=== PATIENT | male | born 1945 | race Caucasian/White ===

== ENCOUNTER 2023-09-19 11:10 | Emergency (ER) | payer MEDICARE, SELFPAY ==
--- NOTE | ~2023-09-19 | XR_ITS ---
EXAMINATION: XR lumbar spine 2-3V, XR pelvis 1-2V DATE: 09/19/2023 12:00 INDICATION: Left lower back pain TECHNIQUE: 1. Anteroposterior and lateral views of the lumbar spine, and cone-down lateral view of the lumbosacr al junction were obtained. 2. AP view of the pelvis was obtained. COMPARISON: None. FINDINGS: Transitional likely syndesmotic L5 segment with 4 more cephalad nonrib-bearing lumbar segments. 2 mm retrolisthesis L2 on L3 and 2 mm anterolisthesis L3 on L4. 3 mild likely physiologic anterior wedging at T12. Lumbar vertebral body heights are normal. Moderate disc height loss at L4-L5 and L5-S1. Mild disc height loss at remaining visualized levels from T10-T 11 through L3-L4. There are bridging osteophytes at multiple levels consistent with diffuse idiopathi c skeletal hyperostosis (DISH). There is multilevel at least moderate severity lower lumbar predomin ant with facet osteoarthritis. Moderate bilateral sacroiliac osteoarthritis. Mild bilateral hip osteo arthritis. IMPRESSION: 1. Mild lower thoracic and mild to moderate lower lumbar predominant spondylosis with bridging osteop hytes at multiple levels consistent with diffuse idiopathic skeletal hyperostosis (DISH). 2. 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 Reviewed, dictated and finalized at location B. IMPRESSION: 1. Mild lower thoracic and mild to moderate lower lumbar predominant spondylosi s with bridging osteophytes at multiple levels consistent with diffuse idiopath ic skeletal hyperostosis (DISH). 2. 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
[2023-09-19 11:25] VITALS: BP 142/84; PULSE 91; RESP 16; TEMP 36.5; O2SAT 96
--- NOTE | 2023-09-19 11:28 | ED.BACK ---
HPI - Back Pain/Injury General Chief Complaint: Back Pain/Injury Stated Complaint: Abdominal Pain Time Seen by Provider: 09/19/23 11:33 Source: patient, RN notes reviewed and old records reviewed Mode of arrival: ambulatory Limitations: no limitations History of Present Illness HPI Narrative: 77 year old male who [facility] with complaints of slipping when he was going to the mailbox yesterday and his foot went into the drain by drive way and he twisted his leg and then started having discomfort in the left SI joint region of his back, denies any fall Patient went to his physical therapy session today for his knees and his therapist did some sonic heat on his left lower back and told him he should get x-ray film and that is why they came here.Patient is on daily Meloxicam and has not taken any other medication for his discomfort. Patient sees orthopedic doctor at [facility] for his knee pain and does receive injections for his pain MD elicited complaint: back pain (left lower back) Pertinent past history: other (arthritis) Onset (ago): day(s) (1) Pain scale (0-10): 8 Location: lumbar spine (left SI area) Radiation: none Exacerbating factors: movement and walking Treatments prior to arrival: other (had sonic heat treatment to left lower back) Work related injury: No Related Data Home Medications Medication Instructions Recorded Confirmed meloxicam 15 mg tablet 15 mg PO DAILY 09/19/23 09/19/23 Allergies Allergy/AdvReac Type Severity Reaction Status Date / Time Sulfa (Sulfonamide Allergy Unknown Verified 09/19/23 11:21 Antibiotics) Review of Systems Review of Systems: CONSTITUTIONAL: Denies fever, chills, or sweats. CARDIOVASCULAR: Denies chest pain, palpitations, or edema. RESPIRATORY: Denies cough or dyspnea. GASTROINTESTINAL: Denies abdominal pain, nausea, vomiting, or diarrhea. GENITOURINARY: Denies dysuria or hematuria. SKIN: Denies rash or itching. MUSCULOSKELETAL: Reports left SI back pain. ongoing pain to bilateral knees or myalgia. NEUROLOGIC: Denies headache, numbness, or weakness. All systems reviewed & are unremarkable except as noted in HPI and below PMFSH Past Medical History Medical History (Updated 09/21/23 @ 08:04 by Ramandeep Faulkner NP) Arthritis Bilateral knee pain Surgical History Surgical History (Updated 06/29/24 @ 07:55 by Ramandeep Faulkner NP) History of tonsillectomy Social History Social History (Updated 09/19/23 @ 12:40 by Ramandeep Faulkner NP) Smoking status: Never smoker Alcohol intake: never Substance use: never Living arrangements: with family Gender identity (if verbalized by the patient): Male Comments At time of signature, agree with nursing past medical, surgical, social and family history. There is no relevant family history pertinent to the presenting complaint Exam Narrative: GENERAL: Well-appearing, well-nourished, and in no acute distress. HEAD: Normocephalic, atraumatic. EYES: PERRLA and EOMI. ENT: Nares clear, no rhinorrhea or epistaxis. Mucous membranes moist. NECK: Supple. no lymphadenopathy CHEST: Clear to auscultation. No respiratory distress.SAO2 96% on room air HEART: Regular rate and rhythm. No murmur heard. Normal peripheral pulses. ABDOMEN: Soft, nontender, nondistended, normal active bowel sounds. EXTREMITIES: Normal range of motion with some edema noted to bilateral knees and patient does wear sleve to his left knee.Reports pain to left lower back over SI joint, no midline tenderness or any radiation of his pain, patient denies any tingling or numbness to his legs or feet with palpable pedal pulses, Patient denies any difficulty passing urine or with bowels, denies any saddle paraesthesia SKIN: Warm, dry, no rash. NEURO: No focal deficits. Alert and oriented x3. Course Course Emergency Course: Patient is aware of diagnosis, understands and agrees to treatment plan. Anticipatory guidance given
== END 2023-09-19 12:42 | disposition home or self-care (01) ==
PROVIDERS: Emergency Provider Registered Nurse
DX: M16.0 Bilateral primary osteoarthritis of hip (principal); M47.818 Spondylosis without myelopathy or radiculopathy, sacral and sacrococcygeal region; M48.14 Ankylosing hyperostosis [Forestier], thoracic region; M48.16 Ankylosing hyperostosis [Forestier], lumbar region
CPT/HCPCS: 72100; 72170; 99214; G0463

== ENCOUNTER 2023-09-22 16:24 | Inpatient (IN) | payer MEDICARE, SELFPAY ==
--- NOTE | ~2023-09-22 | XR_ITS ---
XR abdomen/kub 1V Ordering provider: Sofia Collins APRN History: . constipation . Comparison: None. FINDINGS: BOWEL: Nonobstructive bowel gas pattern. ORGANOMEGALY: None. SIGNIFICANT PATHOLOGIC CALCIFICATIONS: None. OTHER: No free air is seen under the diaphragm. Degenerative changes of the spine. Fixation of the left femoral neck by 3 screws. Bilateral sacroilia cs. IMPRESSION: NO ACUTE ABDOMINAL FINDINGS. Reviewed, dictated and finalized at location A.
--- NOTE | ~2023-09-22 | XR_ITS ---
EXAMINATION: XR surgery orthopedic DATE: 09/24/2023 14:40 INDICATION: Left hip pinning TECHNIQUE: 2 fluoroscopic images of the left hip were obtained during procedure performed by Dr. Rojas teague. Radiologist was not present for the imaging or procedure. The amount of fluoroscopy time used du ring this procedure was 5.5 minutes. Total DAP was 1.53 mGym^2 COMPARISON: 09/22/2023 FINDINGS: No change in alignment of a mildly displaced and impacted transcervical fracture of the proximal left femur which remains in near-anatomic alignment. The fracture is fixed with 3 cannulated lag screws e xtending into the femoral head which is been placed over percutaneous pins. The distal tips of the sc rews do not project beyond the articular cortex of the femoral head. Left hip joint space appears rel atively preserved. IMPRESSION: 1. Near-anatomic alignment post likely percutaneously placed internal fixation of a transcervical fra cture of the proximal left femur with 3 cannulated lag screws. Reviewed, dictated and finalized at location B. IMPRESSION: 1. Near-anatomic alignment post likely percutaneously placed internal fixation of a transcervical fracture of the proximal left femur with 3 cannulated lag sc rews.
--- NOTE | ~2023-09-22 | XR_ITS ---
EXAMINATION: XR hip LT 2V w AP pelvis DATE: 09/22/2023 19:38 INDICATION: Left hip fracture. TECHNIQUE: An anteroposterior view of the pelvis on 2 radiographs and 2 views of left hip on 3 radiog raphs were obtained. COMPARISON: Pelvis radiograph 09/19/2023 FINDINGS: There is a transcervical fracture of left femoral neck. The distal fracture fragment demons trates impaction and 9 mm lateral displacement. There is mild osteoarthritis of the hips. IMPRESSION: 1. Transcervical fracture of left femoral neck. 2. Mild osteoarthritis of the hips. Reviewed, dictated and finalized at location E.
--- NOTE | ~2023-09-22 | CT_ITS ---
EXAMINATION: CT pelvis wo con DATE: 09/22/2023 18:26 INDICATION: Left hip pain. TECHNIQUE: Computed tomography (CT) of the pelvis was performed without intravenous contrast. Automat ed exposure control and iterative reconstruction technique were employed. The dose-length product was 749.64 mGy-cm. COMPARISON: None FINDINGS: There is diverticulosis of the colon without evidence of diverticulitis. There are no patho logically enlarged lymph nodes. There is no free intraperitoneal fluid. The prostate is moderately en larged. There is severe lumbar spondylosis. There is an oblique transcervical fracture of left femora l neck. The distal fracture fragment demonstrates impaction, 2.0 cm shortening, and 34 degrees combat engineer ior angulation. There is moderate osteoarthritis of the hips. Osseous pubis is noted. IMPRESSION: 1. Oblique transcervical fracture of left femoral neck. 2. Moderate osteoarthritis of the hips. Reviewed, dictated and finalized at location E.
--- NOTE | ~2023-09-22 | XR_ITS ---
EXAMINATION: XR chest 1V DATE: 09/22/2023 19:38 INDICATION: Left-sided low back pain. Left hip pain. TECHNIQUE: A single frontal view of the chest was obtained. COMPARISON: None. FINDINGS: There is mild atelectasis at left lung base. No pleural effusion or pneumothorax. The heart size is normal. IMPRESSION: 1. Mild atelectasis at left lung base. Reviewed, dictated and finalized at location E.
[2023-09-22 16:34] VITALS: BP 156/102; PULSE 81; RESP 16; TEMP 36.5; O2SAT 98
[2023-09-22 17:16] VITALS: RESP 20
--- NOTE | 2023-09-22 17:58 | ED.GENADULT ---
HPI - General Adult General Chief complaint: Unspecified Stated complaint: left hip pain Time Seen by Provider: 09/22/23 17:32 Source: patient Mode of arrival: wheelchair Limitations: no limitations History of Present Illness HPI narrative: This is a 77-year-old male that presents to the emergency department for left hip pain. Worsening over the last 5 days. Reports he caught himself from falling and twisted the hip. He was seen at urgent care and had x-rays which showed osteoarthritis. He has been taking meloxicam and Tylenol with little relief. Reports decreased ROM due to pain. Today he has not been able to ambulate due to pain. Denies numbness. Related Data Home Medications Medication Instructions Recorded Confirmed meloxicam 15 mg tablet 15 mg PO DAILY 09/19/23 09/19/23 Allergies Allergy/AdvReac Type Severity Reaction Status Date / Time Sulfa (Sulfonamide Allergy Unknown Verified 09/22/23 16:36 Antibiotics) Review of Systems Review of Systems: CONSTITUTIONAL: Denies fever MUSCULOSKELETAL: Reports joint pain, and myalgia. NEUROLOGIC: Denies numbness, or weakness. All systems reviewed & are unremarkable except as noted in HPI and below PMFSH Past Medical History Medical History (Updated 09/22/23 @ 19:31 by Rosa Maria Esteves PA-C) Arthritis Bilateral knee pain Surgical History Surgical History (Updated 09/21/23 @ 07:55 by Ramandeep Faulkner NP) History of tonsillectomy Social History Social History (Updated 09/19/23 @ 12:40 by Ramandeep Faulkner NP) Smoking status: Never smoker Alcohol intake: never Substance use: never Living arrangements: with family Gender identity (if verbalized by the patient): Male Exam Narrative: GENERAL: Well-appearing, well-nourished, and in no acute distress. HEAD: Normocephalic, atraumatic. EYES: EOMI CHEST: Clear to auscultation. No respiratory distress. No wheezes rales or rhonchi HEART: Regular rate and rhythm. No murmur heard. Normal peripheral pulses. EXTREMITIES: Decreased active ROM in the left hip due to pain. No edema. Normal DP pulse. Normal sensation SKIN: Warm, dry, no rash. NEURO: No focal deficits. Alert and oriented x3. PSYCH: Normal mood and affect Course Course Emergency Course: Patient and family updated on workup and agree with plan of care Consultations Consultation #1: Spoke with Dr. Hidalgo about patient and workup. Would like x-rays as well Date: 09/22/23 Consultation #2: Spoke with hospitalist about patient and workup who accepts admission Date: 09/22/23 Vital Signs Vital signs: Vital Signs Temperature 97.7 F 09/22/23 16:34 Pulse Rate 81 09/22/23 16:34 Respiratory Rate 16 09/22/23 16:34 Blood Pressure 156/102 H 09/22/23 16:34 Pulse Oximetry 98 09/22/23 16:34 Temperature 97.7 F 09/22/23 16:34 Pulse Rate 75 09/22/23 19:04 Respiratory Rate 19 09/22/23 19:04 Blood Pressure 167/98 H 09/22/23 19:04 Pulse Oximetry 96 09/22/23 19:04 Medical Decision Making MDM Narrative Medical decision making narrative: Patient presents to the ER for worsening left hip pain. Evaluated at urgent care with x-rays which showed arthritis. Reports worsening today to the point of being unable to ambulate. His vitals are stable. He is neurovascularly intact. CT scan obtained for further evaluation. This does show transcervical fracture of the left femoral neck. Spoke with Dr. Hidalgo about patient and workup. Would like x-rays as well. Basic blood work, chest x-ray and EKG obtained for pre-op. Spoke with hospitalist who accepts admission Vital Signs Vital Signs: Vital Signs Temperature 97.7 F 09/22/23 16:34 Pulse Rate 81 09/22/23 16:34 Respiratory Rate 16 09/22/23 16:34 Blood Pressure 156/102 H 09/22/23 16:34 Pulse Oximetry 98 09/22/23 16:34 Temperature 97.7 F 09/22/23 16:34 Pulse Rate 75 09/22/23 19:04 Respiratory Rate 19 09/22/23 19:04 Blood
[2023-09-22] MEDS: ACETAMINOPHEN 325 MG TABLET 650 MG PO (18:04)
[2023-09-22] MEDS: HYDROcodone/acetaminophen (*CRX) 5-325 MG TABLET 1 TAB PO (18:04)
--- NOTE | 2023-09-22 18:47 | ECG_ITS ---
Test Date: 2023-09-22 19:11:22 Measurements Intervals [place] Rate: 68 P: -66 LA: 161 QRS: -33 QRSD: 112 T: 14 QT: 393 QTc: 421 Interpretive Statements ECTOPIC ATRIAL RHYTHM LEFT AXIS DEVIATION VOLTAGE CRITERIA FOR LVH POSSIBLE ANTERIOR MYOCARDIAL INFARCTION , OF INDETERMINATE AGE BASELINE ARTIFACT- I, III, AVR, AVL ABNORMAL ECG No previous ECG available for comparison Electronically Signed On 09-23-2023 05:59:20 CDT by Lasha Almaraz D.O.
[2023-09-22 19:04] VITALS: BP 167/98; PULSE 75; RESP 19; O2SAT 96
[2023-09-22 19:12] LABS: Basophils Percent Auto 0.2 % (0.2-1.2); Hematocrit 44.2 % (42.0-52.0); Hemoglobin 14.9 g/dL (14.0-18.0); Immature Granulocyte Absolute 0.04 K/mm3 (0.00-0.031); Immature Granulocyte Percent A 0.3 % (0-0.5); Lymphocytes Percent Auto 6.1 % (18.3-44.2); Mean Corpuscular HGB Conc 33.7 g/dl (32-36); Mean Corpuscular Hemoglobin 31.6 pg (26-34); Mean Corpuscular Volume 93.6 fl (80-100); Mean Platelet Volume 10.3 fl (7.4-10.4); Monocytes Absolute Auto 0.8 K/mm3 (0.1-0.6); Monocytes Percent Auto 6.2 % (2.6-8.5); Neutrophils Absolute Auto 11.5 K/mm3 (1.3-6.7); Neutrophils Percent Auto 87.2 % (45.5-73.1); Platelet Count Result 215 k/mm3 (150-375); Red Blood Count 4.72 M/mm3 (4.6-6.20); Red Cell Distribution Width 13.3 % (11.5-14.5); White Blood Count 13.1 K/mm3 (4.5-10.0)
--- NOTE | 2023-09-22 19:22 | PM.IMHP ---
H&P: HPI History of Present Illness Date/Time: 09/22/23 19:22 Chief Complaint: hip pain Narrative: This is a 77-year-old male WITH PAST MEDICAL HISTORY SIGNIFICANT FOR HYPERTENSION, DJD. PATIENT WAS BROUGHT TO THE EMERGENCY ROOM FOR EVALUATION DUE TO HIP PAIN UPON WEIGHT-BEARING A FEW DAYS PRIOR TO THESE PATIENT WAS AMBULATING WHEN HE CUT HIMSELF IN A FALL AND TWISTED HIS LEG HE WAS SEEN AT OUTSIDE FACILITY EMERGENCY ROOM WHERE INITIAL IMAGING STUDY DID NOT SHOW FRACTURES HOWEVER IT HAS BEEN PROGRESSIVELY WORSE FOR THE PATIENT TO AMBULATE WITH PAIN UPON BEARING WEIGHT HERE IN OUR EMERGENCY ROOM A CT OF THE PELVIS SHOWED FRACTURE OF HIP. PATIENT HAS BEEN ADMITTED FOR FURTHER EVALUATION MANAGEMENT AND TREATMENT. EXAMINATION: CT pelvis wo con DATE: 09/22/2023 18:26 INDICATION: Left hip pain. TECHNIQUE: Computed tomography (CT) of the pelvis was performed without intravenous contrast. Automated exposure control and iterative reconstruction technique were employed. The dose-length product was 749.64 mGy-cm. COMPARISON: None FINDINGS: There is diverticulosis of the colon without evidence of diverticulitis. There are no pathologically enlarged lymph nodes. There is no free intraperitoneal fluid. The prostate is moderately enlarged. There is severe lumbar spondylosis. There is an oblique transcervical fracture of left femoral neck. The distal fracture fragment demonstrates impaction, 2.0 cm shortening, and 34 degrees posterior angulation. There is moderate osteoarthritis of the hips. Osseous pubis is noted. IMPRESSION: 1. Oblique transcervical fracture of left femoral neck. 2. Moderate osteoarthritis of the hips. EXAMINATION: XR chest 1V DATE: 09/22/2023 19:38 INDICATION: Left-sided low back pain. Left hip pain. TECHNIQUE: A single frontal view of the chest was obtained. COMPARISON: None. FINDINGS: There is mild atelectasis at left lung base. No pleural effusion or pneumothorax. The heart size is normal. IMPRESSION: 1. Mild atelectasis at left lung base. Review of Systems Review of Systems: HIP PAIN UPON BEARING WEIGHT Constitutional: Constitutional: Denies chills, Denies fever(s), Denies frequent falls and Denies night sweats Eyes: Eyes: Denies change in vision ENT: Denies dysphagia, Denies vertigo, Denies dizziness and Denies odynophagia Cardiovascular: Cardiovascular: Denies chest pain and Denies leg edema Respiratory: Respiratory: Denies chest congestion and Denies cough Gastrointestinal: Gastrointestinal: Denies abdominal pain, Denies diarrhea, Denies nausea and Denies vomiting Genitourinary: Genitourinary: Denies dysuria Musculoskeletal: Musculoskeletal: Reports arthralgias (HIP) Integumentary/Breasts: Skin/Breast: Denies rash Neurologic: Denies focal weakness and Denies Sensory deficit (Neuro) Psychiatric: Psychiatric: Reports no additional psychiatric complaints and Reports as per HPI Endocrine: Endocrine: Denies cold intolerance, Denies heat intolerance, Denies polyphagia, Denies polydipsia and Denies palpitations Hematologic/Lymphatic: Hematologic/Lymphatic: Reports no additional hematologic/lymphatic complaints and Reports as per HPI Allergic/Immunologic: Allergic/Immunologic: Reports no additional allergic/immunologic complaints and Reports as per HPI PMFSH Past Medical History Medical History Arthritis Bilateral knee pain Surgical History Surgical History History of tonsillectomy Social History Social History Smoking status: Never smoker Second hand tobacco smoke exposure: No Alcohol intake: never Substance use: never Substance use type: does not use Do You Feel Safe in your Home?: Yes Lack of Transportation: No Lack of Food: Never True Current Housing: I Have Housing Concerned About Future Ho
[2023-09-22 19:27] LABS: Alanine Aminotransferase 37 U/L (6-50); Albumin Level 4.2 g/dL (3.5-5.1); Alkaline Phosphatase 90 U/L (38-126); Anion Gap 10 mmol/L (4-12); Aspartate Amino Transferase 34 U/L (17-59); Bilirubin,Total 1.4 mg/dL (0.2-1.3); Blood Urea Nitrogen 33 mg/dL (9-20); Calcium 9.4 mg/dL (8.4-10.2); Carbon Dioxide 21 mmol/L (22-30); Chloride 110 mmol/L (98-107); Estimated CRCL calculation 70 ml/min; Estimated Glomerular Filt Rate > 60; Glucose 139 mg/dL (65-110); Potassium 4.4 mmol/L (3.4-5.0); Sodium 141 mmol/L (137-145)
[2023-09-22 20:00] VITALS: O2SAT 97
[2023-09-22 20:20] VITALS: BP 190/89; PULSE 67; RESP 18; TEMP 36.5; O2SAT 97
[2023-09-22 21:48] VITALS: BMI 29.5
[2023-09-22] MEDS: traMADol HCL (*CRX) 50 MG TABLET PO (23:03)
[2023-09-22] MEDS: predniSONE 20 MG TABLET PO (23:03)
[2023-09-23 06:00] VITALS: BP 144/91; PULSE 75; RESP 16; TEMP 36.4; O2SAT 96
--- NOTE | 2023-09-23 08:21 | PM.IMPN ---
Progress Note: A&P Assessment and Plan (1) Closed fracture of neck of left femur: Qualifiers: Encounter type: initial encounter Qualified Code(s): S72.002A - Fracture of unspecified part of neck of left femur, initial encounter for closed fracture Code(s): S72.002A - Fracture of unspecified part of neck of left femur, initial encounter for closed fracture Status: Acute Assessment and Plan: Patient recently had near falling episode out of his wheelchair and has since been experiencing left hip pain. CT imaging shows oblique transverse fracture of the left femoral neck. Bed rest consulted orthopedic surgery, recs appreciated NPO for possible intervention XR of left hip obtained per ortho Tylenol,, Tramadol, Dilaudid for pain prn Zofran for nausea Prednisone ordered by egg worker, unclear need, discontinued (2) Fall: Qualifiers: Encounter type: initial encounter Qualified Code(s): W19.XXXA - Unspecified fall, initial encounter Code(s): W19.XXXA - Unspecified fall, initial encounter Status: Acute Assessment and Plan: Recent near fall from wheel chair, chronic arthritis Pt/Ot consults when appropriate Dispo planning Plan Feeding:npo Analgesia:tylenol, tramadol, dilaudid prn Thromboembolic prophylaxis: SCD for now. Lovenox after intervention Ulcer prophylaxis: na Glycemic control: na Bowel regimen: miralax and senna Lines: piv Antibiotics: na Disposition: PT/OT planning Advance Care Plan I have confirmed that the patient's Advanced Care Plan is present, code status is documented, or surrogate decision maker is listed in patient medical record.: Yes Medication Reconciliation I have utilized all available resources to obtain, update and review the patients current medications (includes all prescriptions, OTC, herbals, cannabis, and nutritional supplements).: Yes Subjective Date/time seen: 09/23/23 08:21 Interval history: 77-year-old male with a past medical history significant for arthritis present to the emergency room with complaints of left hip pain. CT imaging showed oblique transcervical fracture of the left femoral neck. He states he was out to get the mail and he stepped wrong into a divot in the road causing his weight to shift onto his hip. Orthopedics was consulted and patient was admitted for further workup. 09/22: Mr. Paul is seen resting in bed in no acute distress. He reports pain to his left groin that he rates a 4/10. He says that his pain is controlled with his current regimen. Overall he just feels stiff from being on bedrest and unable to move. He denies headache, dizziness, chest pain, shortness a breath, abdominal pain, nausea, vomiting, diarrhea, or constipation. He denies paresthesias or numbness to his left lower extremity. Review of Systems Review of Systems: All systems reviewed & are unremarkable except as noted in HPI and below Exam Narrative: General: well appearing, appears stated age. HEENT: normocephalic, atraumatic. Mucous membranes moist. EOMI, PERRLA, bilateral sclera anicteric, no conjunctival injection. Neck supple without JVD, lymphadenopathy, or bruit. Respiratory: clear to auscultation bilaterally. No rales/rhonic/wheezes. Cardiovascular: Regular rate and rhythm, normal S1-S2 upon auscultation. No murmurs, rubs, or clicks. PMI is nondisplaced, capillary refill less than 3 second. Abdomen: Soft, round, no pulsatile masses, nondistended and nontender. No rebound, no guarding. No CVA tenderness, no hepatosplenomegaly. Bowel sounds present to all four quadrants. No high pitch or tinkling sounds, resonant to percussion. Extremities: No cyanosis, clubbing, or edema present. Pulses are palpable 2/2. Active ROM to all four extremities. Neuro: Alert and orientated x 4. PERRLA. Cranial nerves 2-12 intact without focal deficit. Skin: Warm, dry, and intact, without rash, erythema, or lesion. Lines:
[2023-09-23] MEDS: HYDROmorphone HCL INJ (*CRX) 1 MG/ML SYR 0.5 MG IV PUSH ×2 (08:47→20:11)
[2023-09-23] MEDS: predniSONE 20 MG TABLET PO (08:47)
[2023-09-23 08:58] LABS: Basophils Percent Auto 0.2 % (0.2-1.2); Hematocrit 44.1 % (42.0-52.0); Hemoglobin 14.5 g/dL (14.0-18.0); Immature Granulocyte Absolute 0.04 K/mm3 (0.00-0.031); Immature Granulocyte Percent A 0.4 % (0-0.5); Lymphocytes Percent Auto 9.8 % (18.3-44.2); Mean Corpuscular HGB Conc 32.9 g/dl (32-36); Mean Corpuscular Hemoglobin 31.9 pg (26-34); Mean Corpuscular Volume 96.9 fl (80-100); Mean Platelet Volume 10.8 fl (7.4-10.4); Monocytes Absolute Auto 0.9 K/mm3 (0.1-0.6); Monocytes Percent Auto 7.7 % (2.6-8.5); Neutrophils Absolute Auto 9.2 K/mm3 (1.3-6.7); Neutrophils Percent Auto 81.9 % (45.5-73.1); Platelet Count Result 195 k/mm3 (150-375); Red Blood Count 4.55 M/mm3 (4.6-6.20); Red Cell Distribution Width 13.5 % (11.5-14.5); White Blood Count 11.2 K/mm3 (4.5-10.0)
[2023-09-23 09:02] LABS: INR 1.1; Partial Thromboplastin Time 25.5 Seconds (22.3-36.8); Prothrombin Time 14.4 Seconds (11.1-14.7)
[2023-09-23 09:10] LABS: Alanine Aminotransferase 36 U/L (6-50); Albumin Level 3.8 g/dL (3.5-5.1); Alkaline Phosphatase 80 U/L (38-126); Anion Gap 6 mmol/L (4-12); Aspartate Amino Transferase 29 U/L (17-59); Bilirubin,Total 1.5 mg/dL (0.2-1.3); Blood Urea Nitrogen 33 mg/dL (9-20); Calcium 9.2 mg/dL (8.4-10.2); Carbon Dioxide 24 mmol/L (22-30); Chloride 111 mmol/L (98-107); Estimated CRCL calculation 79 ml/min; Estimated Glomerular Filt Rate > 60; Glucose 126 mg/dL (65-110); Magnesium 2.1 mg/dL (1.6-2.3); Potassium 4.4 mmol/L (3.4-5.0); Sodium 141 mmol/L (137-145)
[2023-09-23 10:11] LABS: Vitamin D 25 Hydroxy 32.2 ng/mL
--- NOTE | 2023-09-23 12:04 | PM.CNOR ---
Assessment and Plan Assessment and plan (1) Closed fracture of neck of left femur: Qualifiers: Encounter type: initial encounter Qualified Code(s): S72.002A - Fracture of unspecified part of neck of left femur, initial encounter for closed fracture Code(s): S72.002A - Fracture of unspecified part of neck of left femur, initial encounter for closed fracture Status: Acute Assessment and Plan: 77 year old male admitted with a left hip fracture s/p fall while at home. He typically ambulates independently. He was initially evaluated in the ED on 09/18 and discharged home. He returned due to inability to bear weight on the LLE. History, exam and radiographs reviewed with the patient. Radiographs/CT from the ED revealed an oblique transcervical fracture of left femoral neck. Condition, nature, etiology and course of natural history discussed. Conservative and operative treatment options reviewed as well as the risks and benefits of both. Patient/family desire operative treatment. Discussed CRPP Left Hip Fracture. Risks of surgery including but not limited to neurovascular damage, wound complications, blood clot, pulmonary embolus, stroke, myocardial infarction, anesthetic risks up to and including were reviewed. Continued pain and possible dysfunction were explained. No guarantees were offered. The patient understands and wishes to proceed. Plan: CRPP Left Hip Fracture by Dr. Hidalgo. Obtain consent. NPO at midnight. Resume diet in the interim. HOLD Anticoagulants. Pain control. Ice. Bedrest. Monitor I&Os. Plan Reviewed history, exam, radiographs and current labs with attending MD and covering surgeon, Dr. Hidalgo, who agrees with current plan as indicated above. No further recommendations from Dr. Hidalgo at this time. History of Present Illness HPI Consult date: 09/23/23 Chief complaint: Left hip fracture Narrative: 77 year old male admitted with a left hip fracture s/p fall while at home. He typically ambulates independently. He was initially evaluated in the ED on 09/18 and discharged home. He returned due to inability to bear weight on the LLE. History, exam and radiographs reviewed with the patient. Radiographs/CT from the ED revealed an oblique transcervical fracture of left femoral neck. Orthopedic consult requested. Review of Systems Constitutional: Constitutional: Reports no additional constitutional complaints, Denies chills, Denies fatigue, Denies fever(s), Denies headache(s) and Denies weakness Eyes: Eyes: Denies change in vision ENT: Reports Normal hearing present and Denies headache(s) Cardiovascular: Cardiovascular: Denies chest pain and Denies dyspnea Respiratory: Respiratory: Denies cough, Denies dyspnea and Denies wheezing Gastrointestinal: Gastrointestinal: Denies constipation, Denies diarrhea, Denies nausea and Denies vomiting Genitourinary: Genitourinary: Denies hematuria and Denies dysuria Musculoskeletal: Musculoskeletal: Reports as per HPI, Denies numbness and Denies tingling Integumentary/Breasts: Skin/Breast: Reports as per HPI Neurologic: Reports as per HPI, Reports Normal hearing present, Denies headache(s), Denies numbness, Denies tingling and Denies weakness Psychiatric: Psychiatric: Reports no additional psychiatric complaints Endocrine: Endocrine: Reports no additional endocrine complaints and Denies fatigue Hematologic/Lymphatic: Hematologic/Lymphatic: Reports no additional hematologic/lymphatic complaints Allergic/Immunologic: Allergic/Immunologic: Reports no additional allergic/immunologic complaints and Denies wheezing PMF Past Medical History Medical History Arthritis Bilateral knee pain Surgical History Surgical History History of tonsillectomy Social History Social History
[2023-09-23 14:00] VITALS: BP 155/80; PULSE 69; RESP 18; TEMP 35.7; O2SAT 98
[2023-09-23] MEDS: traMADol HCL (*CRX) 50 MG TABLET PO (16:37)
[2023-09-23 20:00] VITALS: O2SAT 98
[2023-09-23 21:29] VITALS: BP 170/90; PULSE 83; RESP 19; TEMP 36.5; O2SAT 97
[2023-09-24] VITALS (15 sets, daily range): BP systolic 140–178; BP diastolic 81–98; PULSE 58–78; RESP 12–18; TEMP 35.7–37.2; O2SAT 94–100
[2023-09-24 01:29] LABS: Appearance Urine Cloudy (Clear); Bacteria Urine None Seen /hpf; Bilirubin Urine Negative (Negative); Blood Urine Negative (Negative); Color Urine Yellow (Yellow); Glucose Urine UA Negative (Negative); Ketones Urine Negative (Negative); Leukocyte Esterase Ur Negative LEU/UL (Negative); Need Manual Microscopic Reviewed; Nitrate Urine Positive (Negative); Non Pathogenic Casts 0-2; Protein Urine Negative (Negative); RBC Urine 0-2 /hpf (0-2); Specific Grav Ur 1.025 (1.001-1.035); Squamous Epithelial Cell Urine None Seen /hpf (Few); WBC Urine 0-5 /hpf (0-3)
[2023-09-24 01:30] LABS: Add Urine Microscopic? YES; Amorphous Sediment Urine Few
[2023-09-24 06:35] LABS: Basophils Absolute Auto 0.1 K/mm3 (0.0-0.1); Basophils Percent Auto 0.4 % (0.2-1.2); Eosinophils Percent Auto 0.3 % (0-4.4); Hematocrit 40.6 % (42.0-52.0); Hemoglobin 13.5 g/dL (14.0-18.0); Immature Granulocyte Absolute 0.04 K/mm3 (0.00-0.031); Immature Granulocyte Percent A 0.3 % (0-0.5); Lymphocytes Percent Auto 18.4 % (18.3-44.2); Mean Corpuscular HGB Conc 33.3 g/dl (32-36); Mean Corpuscular Hemoglobin 32.1 pg (26-34); Mean Corpuscular Volume 96.4 fl (80-100); Mean Platelet Volume 10.5 fl (7.4-10.4); Monocytes Absolute Auto 1.4 K/mm3 (0.1-0.6); Monocytes Percent Auto 11.7 % (2.6-8.5); Neutrophils Absolute Auto 8.2 K/mm3 (1.3-6.7); Neutrophils Percent Auto 68.9 % (45.5-73.1); Platelet Count Result 183 k/mm3 (150-375); Red Blood Count 4.21 M/mm3 (4.6-6.20); Red Cell Distribution Width 13.4 % (11.5-14.5)
[2023-09-24 06:40] LABS: INR 1.1; Prothrombin Time 14.9 Seconds (11.1-14.7)
[2023-09-24 06:41] LABS: Partial Thromboplastin Time 26.4 Seconds (22.3-36.8)
[2023-09-24 06:59] LABS: Alanine Aminotransferase 40 U/L (6-50); Albumin Level 3.2 g/dL (3.5-5.1); Alkaline Phosphatase 80 U/L (38-126); Anion Gap 4 mmol/L (4-12); Aspartate Amino Transferase 36 U/L (17-59); Blood Urea Nitrogen 28 mg/dL (9-20); Calcium 8.7 mg/dL (8.4-10.2); Carbon Dioxide 25 mmol/L (22-30); Chloride 109 mmol/L (98-107); Estimated CRCL calculation 70 ml/min; Estimated Glomerular Filt Rate > 60; Glucose 114 mg/dL (65-110); Magnesium 2.1 mg/dL (1.6-2.3); Potassium 3.9 mmol/L (3.4-5.0); Sodium 138 mmol/L (137-145)
[2023-09-24] MEDS: traMADol HCL (*CRX) 50 MG TABLET PO (08:00)
--- NOTE | 2023-09-24 09:21 | PM.IMPN ---
Progress Note: A&P Assessment and Plan (1) Closed fracture of neck of left femur: Qualifiers: Encounter type: initial encounter Qualified Code(s): S72.002A - Fracture of unspecified part of neck of left femur, initial encounter for closed fracture Code(s): S72.002A - Fracture of unspecified part of neck of left femur, initial encounter for closed fracture Status: Acute Assessment and Plan: Patient recently had near falling episode out of his wheelchair and has since been experiencing left hip pain. CT imaging shows oblique transverse fracture of the left femoral neck. Bed rest consulted orthopedic surgery, recs appreciated NPO for possible intervention XR of left hip obtained per ortho Tylenol,, Tramadol, Dilaudid for pain prn Zofran for nausea Prednisone ordered by human services program specialist, unclear need, discontinued 09/23: Surgery today at 1300 (2) Fall: Qualifiers: Encounter type: initial encounter Qualified Code(s): W19.XXXA - Unspecified fall, initial encounter Code(s): W19.XXXA - Unspecified fall, initial encounter Status: Acute Assessment and Plan: Recent near fall from wheel chair, chronic arthritis Pt/Ot consults when appropriate Dispo planning Plan Feeding:npo Analgesia:tylenol, tramadol, dilaudid prn Thromboembolic prophylaxis: SCD for now. Lovenox after intervention Ulcer prophylaxis: na Glycemic control: na Bowel regimen: miralax and senna Lines: piv Antibiotics: na Disposition: PT/OT planning Advance Care Plan I have confirmed that the patient's Advanced Care Plan is present, code status is documented, or surrogate decision maker is listed in patient medical record.: Yes Medication Reconciliation I have utilized all available resources to obtain, update and review the patients current medications (includes all prescriptions, OTC, herbals, cannabis, and nutritional supplements).: Yes Subjective Date/time seen: 09/24/23 09:21 Interval history: 77-year-old male with a past medical history significant for arthritis present to the emergency room with complaints of left hip pain. CT imaging showed oblique transcervical fracture of the left femoral neck. He states he was out to get the mail and he stepped wrong into a divot in the road causing his weight to shift onto his hip. Orthopedics was consulted and patient was admitted for further workup. 09/22: Mr. Paul is seen resting in bed in no acute distress. He reports pain to his left groin that he rates a 4/10. He says that his pain is controlled with his current regimen. Overall he just feels stiff from being on bedrest and unable to move. He denies headache, dizziness, chest pain, shortness a breath, abdominal pain, nausea, vomiting, diarrhea, or constipation. He denies paresthesias or numbness to his left lower extremity. 09/23: Patient to OR with Orthopedics today for percutaneous pinning of left femoral neck fracture. No acute events overnight. Review of Systems Review of Systems: All systems reviewed & are unremarkable except as noted in HPI and below Exam Narrative: General: well appearing, appears stated age. HEENT: normocephalic, atraumatic. Mucous membranes moist. EOMI, PERRLA, bilateral sclera anicteric, no conjunctival injection. Neck supple without JVD, lymphadenopathy, or bruit. Respiratory: clear to auscultation bilaterally. No rales/rhonic/wheezes. Cardiovascular: Regular rate and rhythm, normal S1-S2 upon auscultation. No murmurs, rubs, or clicks. PMI is nondisplaced, capillary refill less than 3 second. Abdomen: Soft, round, no pulsatile masses, nondistended and nontender. No rebound, no guarding. No CVA tenderness, no hepatosplenomegaly. Bowel sounds present to all four quadrants. No high pitch or tinkling sounds, resonant to percussion. Extremities: No cyanosis, clubbing, or edema present. Pulses are palpable 2/2. Active ROM to all four extremities. Neuro
--- NOTE | 2023-09-24 10:09 | WPDHPUPDATE1 ---
History and Physical Update Update Date/Time: 09/24/23 10:09 History and Physical has been reviewed, including an updated exam of the patient. There are NO changes in the patient's condition. Risks, benefits, and alternatives have been discussed and questions answered. Patient agrees to proceed with procedure.
--- NOTE | 2023-09-24 12:31 | WPDANESEPPF ---
Anes - Initial Pre Proc Eval Procedure: Operation Date: 09/24/23 13:00 Proposed Procedures p Closed Reduction Percutaneous Pinning Left Hip - Robb Hidalgo MD Date/Time: 09/24/23 12:31 Surgeon: Nandini Bernstein APRN Pre Op Diagnosis: Left hip fracture Patient Data Age: 77 Gender: M Height: 1.78 m Weight: 93.5 kg Last Vital Signs Temp 97.3 F L 09/24/23 05:20 Pulse 69 09/24/23 05:20 Resp 18 09/24/23 05:20 BP 159/91 H 09/24/23 05:20 Pulse Ox 96 09/24/23 08:00 O2 Del Method Room Air 09/24/23 08:00 Allergies Allergy/AdvReac Type Severity Reaction Status Date / Time Sulfa (Sulfonamide Allergy Unknown Verified 09/22/23 16:36 Antibiotics) Home Medications Medication Instructions Recorded Confirmed Type meloxicam 15 mg tablet 15 mg PO DAILY 09/19/23 09/22/23 History prednisone 20 mg tablet 20 mg PO BID #10 tabs 09/19/23 09/22/23 Rx Laboratory Tests 09/24/23 09/24/23 09/24/23 00:17 05:58 09:58 WBC 12.0 H K/mm3 (4.5-10.0) RBC 4.21 L M/mm3 (4.6-6.20) Hgb 13.5 L g/dL (14.0-18.0) Hct 40.6 L % (42.0-52.0) MCV 96.4 fl (80-100) MCH 32.1 pg (26-34) MCHC 33.3 g/dl (32-36) RDW 13.4 % (11.5-14.5) Plt Count 183 k/mm3 (150-375) MPV 10.5 H fl (7.4-10.4) Immature Gran % (Auto) 0.3 % (0-0.5) Neut % (Auto) 68.9 % (45.5-73.1) Lymph % (Auto) 18.4 % (18.3-44.2) [place] % (Auto) 11.7 H % (2.6-8.5) Eos % (Auto) 0.3 % (0-4.4) Baso % (Auto) 0.4 % (0.2-1.2) Lymph # (Auto) 2.20 K/mm3 (0.9-3.2) [place] # (Auto) 1.4 H K/mm3 (0.1-0.6) Eos # (Auto) 0.0 K/mm3 (0-0.3) Baso # (Auto) 0.1 K/mm3 (0.0-0.1) Abs Immat Gran (auto) 0.04 H K/mm3 (0.00-0.031) Absolute Neuts (auto) 8.2 H K/mm3 (1.3-6.7) Absolute Nucleated RBC 0.000 K/mm3 (0.0-0.012) Nucleated RBC % 0.0 % (0.0-0.2) PT 14.9 H Seconds (11.1-14.7) INR 1.1 APTT 26.4 Seconds (22.3-36.8) Sodium 138 mmol/L (137-145) Potassium 3.9 mmol/L (3.4-5.0) Chloride 109 H mmol/L (98-107) Carbon Dioxide 25 mmol/L (22-30) Anion Gap 4 mmol/L (4-12) BUN 28 H mg/dL (9-20) Creatinine 0.80 mg/dL (0.7-1.3) Estim Creat Clear Calc 70 ml/min Estimated GFR > 60 (59 - ) Glucose 114 H mg/dL (65-110) Calcium 8.7 mg/dL (8.4-10.2) Magnesium 2.1 mg/dL (1.6-2.3) Total Bilirubin 1.0 mg/dL (0.2-1.3) AST 36 U/L (17-59) ALT 40 U/L (6-50) Alkaline Phosphatase 80 U/L (38-126) Total Protein 6.0 L g/dL (6.3-8.2) Albumin 3.2 L g/dL (3.5-5.1) Urine Color Yellow (Yellow) Urine Appearance Cloudy H (Clear) Urine pH 7.0 (5.0-9.0) Ur Specific [place] 1.025 (1.001-1.035) Urine Protein Negative mg/dL (Negative) Urine Glucose (UA) Negative mg/dL (Negative) Urine Ketones Negative mg/dL (Negative) Ur Blood (Man) Negative (Negative) Urine Nitrate Positive H (Negative) Urine Bilirubin Negative (Negative) Urine Urobilinogen 4.0 H mg/dL (<2.0) Add Ur Microanalysis Reviewed Leukocyte Esterase Rfl Negative SAN[place]/UL (Negative) Urine RBC 0-2 /hpf (0-2) Urine WBC 0-5 /hpf (0-3) Ur Squamous Epith Cells None seen /hpf (Few) Amorphous Sediment Few H (None) Urine Bacteria None seen /hpf Urine Casts 0-2 Blood Type A Positive Antibody Screen Negative Patient hx anesthesia problems: none Family hx anesthesia problems: none Results Review
--- NOTE | 2023-09-24 12:59 | P.OP_ITS ---
Procedure Note - Detailed Date of Procedure 09/24/23 Pre-op Diagnosis LEFT FEMORAL NECK FRACTURE Post-op Diagnosis Same Procedure Performed CLOSED REDUCTION, PERCUTANEOUS PINNING LEFT FEMORAL NECK FRACTURE Surgeon Robb Hidalgo MD Anesthesia General Description of Procedure THE PATIENT WAS TAKEN TO THE OPERATING ROOM AND PLACED UNDER GENERAL ANESTHESIA. THE PATIENT WAS PLACED ON A FRACTURE TABLE. THE LEFT LOWER EXTREMITY WAS PREPPED AND DRAPED IN THE STERIL FASHION FROM THE KNEE TO THE ILIAC CREST. THE INCISION WAS MADE ON THE LATERAL HIP JUST DISTAL TO THE GREATER TROCHANTER DOWN TO THE BONE. BLEEDERS WERE CAUTERIZED. 3 GUIDE PINS WERE PLACED THROUGH THE FEMORAL NECK AND PASSED THE FRACTURE SITE AND IN TO THE SUBCHONDRAL BONE OF THE FEMORAL HEAD. THREE CANNULATED SCREWS WERE PLACED OVER THE GUIDE PINS AND THESE WERE SHOWN TO BE IN GOOD POSITION PER FLUOROSCOPY ON BOTH THE AP AND LATERAL VIE WS. ALL SCREWS HAD EXCELLENT BITES. THE WOUND WAS WASHED WELL. THE DEEP FASCIAL LAYER WAS APPROXIMATED WITH #1 VICRYL SUTURE, THE SUBCUTANEOUS LAYER WITH 2-0 VICRYL AND THE SKIN WAS APPROXIMATED ARY. A STERILE DRESSING WAS PLACED. THE PATIENT WAS EXTUBATED AND SENT TO RECOVERY ROOM Estimated Blood Loss 50 Urine Output 600 Drains No Complications No immediate complications Condition Stable Disposition PACU
--- NOTE | 2023-09-24 13:11 | SUR.PREOP ---
PRE OPERATIVE SHAVE AND SCRUB DEFFERED DUE TO PAIN.
[2023-09-24] MEDS: ceFAZolin 2 GM/D5W 50 ML 2 GM/50 ML BAG IVPB ×2 (13:14→18:09)
[2023-09-24] MEDS: TRANEXAMIC ACID 1,000 MG/10 ML AMPUL 1000 MG IV PUSH (14:42)
[2023-09-24] MEDS: LACTATED RINGERS 1,000 ML 30 ML IV CONT (15:00)
[2023-09-24] MEDS: fentaNYL CITRATE INJ (*CRX) 100 MCG/2 ML VIAL 25 MCG IV PUSH ×2 (15:13→15:25)
[2023-09-24] MEDS: ASPIRIN 325 MG ENTERIC TABLET PO (20:34)
[2023-09-24] MEDS: FAMOTIDINE 20 MG TABLET PO (20:34)
[2023-09-24] MEDS: HYDROcodone/acetaminophen (*CRX) 5-325 MG TABLET 1 TAB PO (20:34)
[2023-09-24 21:47] LABS: CRP 1.9 mg/dL (<1.0)
[2023-09-25 01:45] VITALS: BP 128/70; PULSE 80; RESP 12; TEMP 36.7; O2SAT 95
[2023-09-25] MEDS: ceFAZolin 2 GM/D5W 50 ML 2 GM/50 ML BAG IVPB ×2 (02:19→10:40)
[2023-09-25] MEDS: HYDROcodone/acetaminophen (*CRX) 5-325 MG TABLET 1 TAB PO ×4 (04:54→19:55)
[2023-09-25 05:15] VITALS: BP 140/75; PULSE 81; RESP 12; TEMP 36.4; O2SAT 96
[2023-09-25 06:25] LABS: Basophils Absolute Auto 0.1 K/mm3 (0.0-0.1); Basophils Percent Auto 0.7 % (0.2-1.2); Eosinophils Absolute Auto 0.2 K/mm3 (0-0.3); Eosinophils Percent Auto 1.6 % (0-4.4); Hematocrit 42.3 % (42.0-52.0); Hemoglobin 13.8 g/dL (14.0-18.0); Immature Granulocyte Absolute 0.09 K/mm3 (0.00-0.031); Immature Granulocyte Percent A 0.7 % (0-0.5); Lymphocytes Absolute Auto 2.29 K/mm3 (0.9-3.2); Lymphocytes Percent Auto 17.5 % (18.3-44.2); Mean Corpuscular HGB Conc 32.6 g/dl (32-36); Mean Corpuscular Hemoglobin 31.6 pg (26-34); Mean Corpuscular Volume 96.8 fl (80-100); Mean Platelet Volume 11.2 fl (7.4-10.4); Monocytes Absolute Auto 1.8 K/mm3 (0.1-0.6); Monocytes Percent Auto 13.6 % (2.6-8.5); Neutrophils Absolute Auto 8.6 K/mm3 (1.3-6.7); Neutrophils Percent Auto 65.9 % (45.5-73.1); Platelet Count Result 194 k/mm3 (150-375); Red Blood Count 4.37 M/mm3 (4.6-6.20); Red Cell Distribution Width 13.2 % (11.5-14.5); White Blood Count 13.1 K/mm3 (4.5-10.0)
[2023-09-25 06:38] LABS: Alanine Aminotransferase 89 U/L (6-50); Albumin Level 3.2 g/dL (3.5-5.1); Alkaline Phosphatase 108 U/L (38-126); Anion Gap 5 mmol/L (4-12); Aspartate Amino Transferase 86 U/L (17-59); Bilirubin,Total 1.6 mg/dL (0.2-1.3); Blood Urea Nitrogen 26 mg/dL (9-20); Calcium 8.3 mg/dL (8.4-10.2); Carbon Dioxide 26 mmol/L (22-30); Chloride 104 mmol/L (98-107); Estimated CRCL calculation 70 ml/min; Estimated Glomerular Filt Rate > 60; Glucose 99 mg/dL (65-110); Magnesium 1.9 mg/dL (1.6-2.3); Potassium 4.2 mmol/L (3.4-5.0); Sodium 135 mmol/L (137-145)
[2023-09-25 08:14] VITALS: BP 127/81; PULSE 76; RESP 16; TEMP 35.6; O2SAT 94
[2023-09-25] MEDS: ASPIRIN 325 MG ENTERIC TABLET PO ×2 (08:34→19:56)
[2023-09-25] MEDS: SENNA/DOCUSATE SODIUM TABLET 2 TAB PO ×2 (08:34→16:55)
[2023-09-25] MEDS: MELOXICAM 7.5 MG TABLET 15 MG PO (08:34)
[2023-09-25] MEDS: FAMOTIDINE 20 MG TABLET PO ×2 (08:34→19:56)
[2023-09-25] MEDS: polyethylene glycoL 3350 17 GM POWD.PACK PO (08:35)
--- NOTE | 2023-09-25 08:37 | PM.IMPN ---
Progress Note: A&P Assessment and Plan (1) Closed fracture of neck of left femur: Qualifiers: Encounter type: initial encounter Qualified Code(s): S72.002A - Fracture of unspecified part of neck of left femur, initial encounter for closed fracture Code(s): S72.002A - Fracture of unspecified part of neck of left femur, initial encounter for closed fracture Status: Acute Assessment and Plan: Patient recently had near falling episode out of his wheelchair and has since been experiencing left hip pain. CT imaging shows oblique transverse fracture of the left femoral neck. Bed rest consulted orthopedic surgery, recs appreciated NPO for possible intervention XR of left hip obtained per ortho Tylenol,, Tramadol, Dilaudid for pain prn Zofran for nausea Prednisone ordered by order control clerk blood bank, unclear need, discontinued 09/23: Surgery today at 1300 09/24: pain control, work with PT/OT as indicated (2) Fall: Qualifiers: Encounter type: initial encounter Qualified Code(s): W19.XXXA - Unspecified fall, initial encounter Code(s): W19.XXXA - Unspecified fall, initial encounter Status: Acute Assessment and Plan: Recent near fall from wheel chair, chronic arthritis Pt/Ot consults when appropriate Dispo planning Plan Feeding:regular diet Analgesia:tylenol, tramadol, Dilaudid prn Thromboembolic prophylaxis: SCD. Since surgery is done- will order Lovenox Ulcer prophylaxis: na Glycemic control: na Bowel regimen: miralax and senna Lines: piv Antibiotics: na Disposition: PT/OT planning Time Spent With Patient Time with patient: 25 - 35 minutes Subjective Date/time seen: 09/25/23 08:37 Interval history: 77-year-old male with a past medical history significant for arthritis present to the emergency room with complaints of left hip pain. CT imaging showed oblique transcervical fracture of the left femoral neck. He states he was out to get the mail and he stepped wrong into a divot in the road causing his weight to shift onto his hip. Orthopedics was consulted and patient was admitted for further workup. 09/22: Mr. Paul is seen resting in bed in no acute distress. He reports pain to his left groin that he rates a 4/10. He says that his pain is controlled with his current regimen. Overall he just feels stiff from being on bedrest and unable to move. He denies headache, dizziness, chest pain, shortness a breath, abdominal pain, nausea, vomiting, diarrhea, or constipation. He denies paresthesias or numbness to his left lower extremity. 09/23: Patient to OR with Orthopedics today for percutaneous pinning of left femoral neck fracture. No acute events overnight. 09/24 pt is seen and examined today. He is up in the chair- alert, oriented, pain is at 3 - tolerable. If stable- and placement in place- anticipate possible discharge tomorrow Review of Systems Review of Systems: All systems reviewed & are unremarkable except as noted in HPI and below Exam Narrative: General: well appearing, appears stated age. up in the chair HEENT: normocephalic, atraumatic. Mucous membranes moist. EOMI, PERRLA, bilateral sclera anicteric, no conjunctival injection. Neck supple without JVD, lymphadenopathy, or bruit. Respiratory: clear to auscultation bilaterally. No rales/rhonic/wheezes. Cardiovascular: Regular rate and rhythm, normal S1-S2 upon auscultation. No murmurs, rubs, or clicks. PMI is nondisplaced, capillary refill less than 3 second. Abdomen: Soft, round, no pulsatile masses, nondistended and nontender. No rebound, no guarding. No CVA tenderness, no hepatosplenomegaly. Bowel sounds present to all four quadrants. No high pitch or tinkling sounds, resonant to percussion. Extremities: No cyanosis, clubbing, or edema present. Pulses are palpable 2/2. Active ROM to all four extremities. Neuro: Alert and orientated x 4. PERRLA. Cranial nerves 2-12 intact without focal deficit.
[2023-09-25] MEDS: ENOXAPARIN 40 MG/0.4 ML SYRINGE SUB-Q (10:40)
--- NOTE | 2023-09-25 11:59 | PM.PNORT ---
Progress Note: A&P Assessment and Plan (1) Closed fracture of neck of left femur: Qualifiers: Encounter type: subsequent encounter Fracture healing: with routine healing Qualified Code(s): S72.002D - Fracture of unspecified part of neck of left femur, subsequent encounter for closed fracture with routine healing Code(s): S72.002A - Fracture of unspecified part of neck of left femur, initial encounter for closed fracture Status: Acute Assessment and Plan: postoperative day 1 left hip pinning. Patient comfortable. Up in chair, alert and oriented x3. PT/OT pain control DVT prophylaxis indicated for acute rehab Subjective Subjective Date/Time Seen: 09/25/23 11:59 Post Op day: 1 Principal diagnosis: Left hip femoral neck fracture Interval history: Patient resting comfortably up in chair. Awake and alert. Less confused today. Oriented to person, place and time. Complains of minimal pain left hip. Exam Const: General: comfortable; No acute distress Resp: Effort & Inspection: normal respiratory effort and no audible wheezes Extrem: Right lower extremity: lower leg ( Negative Homans sign), ankle Details: normal ROM ( dorsiflexion and plantar flexion intact) and foot Details: vascular exam Details: dorsalis pedis pulse present and normal capillary refill, tendon exam Details: active flexion normal and active extension normal and motor-sensory exam Details: light-touch normal Location: in all toes; no edema Left lower extremity: normal to inspection, ankle Details: normal to inspection and normal ROM ( ankle dorsiflexion plantar flexion intact); no tenderness and foot Details: vascular exam Details: dorsalis pedis pulse present and normal capillary refill and motor-sensory exam light-touch normal in all toes; no edema Objective Data Vital Signs Vital Signs: Vital Signs - 24 hr 09/24/23 15:00 09/24/23 15:15 09/24/23 15:30 Temperature 97.3 F L Pulse Rate 69 61 65 Respiratory Rate 16 14 16 Blood Pressure 141/86 H 164/85 H 151/87 H Pulse Oximetry 97 100 94 Oxygen Delivery Simple Face Mask Simple Face Mask Room Air Oxygen Flow Rate 8 8 09/24/23 15:45 09/24/23 16:00 09/24/23 16:15 Temperature Pulse Rate 58 L 59 L 58 L Respiratory Rate 14 15 16 Blood Pressure 149/82 H 164/85 H 161/84 H Pulse Oximetry 97 99 99 Oxygen Delivery Nasal Cannula Nasal Cannula Nasal Cannula Oxygen Flow Rate 2 2 2 09/24/23 16:30 09/24/23 16:35 09/24/23 17:15 Temperature 97.4 F L 96.2 F L 96.2 F L Pulse Rate 64 61 66 Respiratory Rate 16 16 18 Blood Pressure 168/81 H 178/87 H 168/81 H Pulse Oximetry 98 98 95 Oxygen Delivery Oxygen Flow Rate 09/24/23 18:15 09/24/23 20:25 09/24/23 21:27 Temperature 96.2 F L 98.5 F Pulse Rate 73 73 76 Respiratory Rate 16 16 12 Blood Pressure 158/93 H 140/84 Pulse Oximetry 98 98 96 Oxygen Delivery Nasal Cannula Oxygen Flow Rate 2 09/25/23 01:45 09/25/23 05:15 09/25/23 08:01 Temperature 98.1 F 97.6 F Pulse Rate 80 81 Respiratory Rate 12 12 Blood Pressure 128/70 140/75 Pulse Oximetry 95 96 Oxygen Delivery Room Air Oxygen Flow Rate 09/25/23 08:14 Temperature 96.0 F L Pulse Rate 76 Respiratory Rate 16 Blood Pressure 127/81 Pulse Oximetry 94 Oxygen Delivery Oxygen Flow Rate Intake/Output Intake/Output: Intake & Output 09/22/23 09/23/23 09/24/23 09/25/23 23:59 23:59 23:59 23:59 Intake Total 480 930 800 Output Total 600 1700 600 Balance -120 -770 200 Meds/Results Medications: Active Medications Generic Name Dose Route Start Last Admin Trade Name Freq PRN Reason Stop Dose Admin Hydrocodone Bitart/Acetaminophen 1 tab 09/24/23 16:20 09/25/23 08:33 Hydrocodone/Acetaminophen (*Crx) 5-325 Mg Tablet PO 1 tab Q4H PRN Administration Pain Rated 4-6 Hydrocodone Bitart/Acetaminophen 1 tab 09/24/23 16:20 Hydrocodone/Acetaminophen (*Crx) 10-325 Mg Tablet PO Q4H PRN Pain Rated
[2023-09-25 12:00] VITALS: BP 137/86; PULSE 80; RESP 18; TEMP 35.8; O2SAT 95
[2023-09-25] MEDS: BISACODYL 10 MG SUPPOSITORY RECTAL (14:05)
--- NOTE | 2023-09-25 15:31 | WPDANESPN ---
Anes - Prog Note Post-Op Date/Time: 09/25/23 15:31 Cardiovascular status: normal Respiratory status: normal Airway patency: baseline Mental status: baseline Post-Op hydration status: normal Vital Signs: Last Vital Signs Temp 35.8 C L 09/25/23 12:00 Pulse 80 09/25/23 12:00 Resp 18 09/25/23 12:00 BP 137/86 09/25/23 12:00 Pulse Ox 95 09/25/23 12:00 O2 Del Method Room Air 09/25/23 08:01 O2 Flow Rate 2 09/24/23 20:25 Pain Score (VAS): 0 I/O: Intake & Output 09/24/23 09/25/23 09/25/23 23:59 07:59 15:59 Intake Total 730 800 480 Output Total 500 600 Balance 230 200 480 Laboratory Tests 09/25/23 05:25 09/25/23 05:25 09/24/23 09/25/23 05:52 05:25 WBC 13.1 H RBC 4.37 L Hgb 13.8 L Hct 42.3 MCV 96.8 MCH 31.6 MCHC 32.6 RDW 13.2 Plt Count 194 MPV 11.2 H Immature Gran % (Auto) 0.7 H Neut % (Auto) 65.9 Lymph % (Auto) 17.5 L [place] % (Auto) 13.6 H Eos % (Auto) 1.6 Baso % (Auto) 0.7 Lymph # (Auto) 2.29 [place] # (Auto) 1.8 H Eos # (Auto) 0.2 Baso # (Auto) 0.1 Abs Immat Gran (auto) 0.09 H Absolute Neuts (auto) 8.6 H Absolute Nucleated RBC 0.000 Nucleated RBC % 0.0 Sodium 135 L Potassium 4.2 Chloride 104 Carbon Dioxide 26 Anion Gap 5 BUN 26 H Creatinine 0.80 Estim Creat Clear Calc 70 Estimated GFR > 60 Glucose 99 Calcium 8.3 L Magnesium 1.9 Total Bilirubin 1.6 H AST 86 H ALT 89 H Alkaline Phosphatase 108 C-Reactive Protein 1.9 H Total Protein 6.0 L Albumin 3.2 L Post-procedural complaints: none Patient Feedback: Patient satisfied with anesthetic care.
--- NOTE | 2023-09-25 18:11 | PM.DS ---
DS: Summary Time Spent with Patient Time attestation: Total time spent providing and/or coordinating discharge services: DS: Data Data Completed and Pending Labs on day of discharge: Labs from last 24 hours 09/25/23 09/24/23 05:25 05:52 WBC 13.1 H RBC 4.37 L Hgb 13.8 L Hct 42.3 MCV 96.8 MCH 31.6 MCHC 32.6 RDW 13.2 Plt Count 194 MPV 11.2 H Immature Gran % (Auto) 0.7 H Neut % (Auto) 65.9 Lymph % (Auto) 17.5 L [place] % (Auto) 13.6 H Eos % (Auto) 1.6 Baso % (Auto) 0.7 Lymph # (Auto) 2.29 [place] # (Auto) 1.8 H Eos # (Auto) 0.2 Baso # (Auto) 0.1 Abs Immat Gran (auto) 0.09 H Absolute Neuts (auto) 8.6 H Absolute Nucleated RBC 0.000 Nucleated RBC % 0.0 Sodium 135 L Potassium 4.2 Chloride 104 Carbon Dioxide 26 Anion Gap 5 BUN 26 H Creatinine 0.80 Estim Creat Clear Calc 70 Estimated GFR > 60 Glucose 99 Calcium 8.3 L Magnesium 1.9 Total Bilirubin 1.6 H AST 86 H ALT 89 H Alkaline Phosphatase 108 C-Reactive Protein 1.9 H Total Protein 6.0 L Albumin 3.2 L Discharge Plan Discharge Attending physician on discharge: Sofia Collins Consulting providers: Robb Hidalgo Discharging Clinician: Susy Robins Patient Disposition: Inpatient Rehab Facility Activity: may shower, no driving and follow weight bearing status Diet: as tolerated Discharge Instructions: Postoperative Hip Fracture Instructions Dr. Robb Hidalgo [phone] Dressing to be changed daily with an island dressing beginning on post op day #2. May stop dressing changes at post op day #14. [place] to be removed on post op day #14 Weight bearing: Toe-touch weight bearing. You may shower with your dressing but do not submerge in a bath tub. Do not drive or operate machinery until you are released by your surgeon. Do not walk without a walker for any reason until you are released by your surgeon. DVT prophylaxis x28 days post op. Continue to apply ice to the hip intermittently for additional pain relief. Protect your skin with a towel or pillow case. Continue to follow strict hip fracture precautions. Please contact our office with any questions/concerns regarding your hip at [phone]. Follow up appointment instructions indicated below. Patient to follow discharge instruction from his surgeon and follow up as schedule. Patient to follow up with his primary care provider as soon as possible . Stand Alone Forms: General Discharge Information Follow-up/Referrals: Robb Hidalgo MD [Physician] - (Call for a 6 week f/u appt. ) Discharge Medications: New hydrocodone-acetaminophen 5-325 mg Tablet 1 tablet PO Q4H PRN (Reason: Pain Rated 4-6) Qty: 10 0RF polyethylene glycol 3350 [Miralax] 17 gram Powder In Packet 17 g PO QAM Qty: 30 0RF sennosides-docusate sodium [Senokot-S] 8.6-50 mg Tablet 2 tab PO BID Qty: 30 0RF famotidine 20 mg Tablet 20 mg PO Q12HR Qty: 30 0RF aspirin 325 mg Tablet,Delayed Release (Dr/Ec) 325 mg PO Q12HR Qty: 42 0RF hydroxyzine pamoate 25 mg Capsule 50 mg PO Q4H PRN (Reason: Itching) Qty: 30 0RF Continued meloxicam 15 mg tablet 15 mg PO DAILY Held prednisone 20 mg tablet 20 mg PO BID Qty: 10 0RF Hold Instructions: Resume on 10/02/23. Patient has not received the medicatio for 4 days,will hold until seen by primary care Date of admission: 09/23/23 07:45 Primary Care Provider: PHYSICIAN,LABORER OPERATOR Admitting Provider: Enrique Daniel V. Attending physician on admission: Nandini Bernstein Condition: Stable
[2023-09-25] MEDS: diazePAM (*CRX) 5 MG TABLET PO (19:55)
--- NOTE | 2023-09-29 16:45 | WPDPN ---
Subjective Date/time seen: 09/25/2023 Interval history: opened in an error Objective Data Meds/Results Radiology Results: ITS Impressions Pelvis CT 09/22/23 18:28 IMPRESSION: 1. Oblique transcervical fracture of left femoral neck. 2. Moderate osteoarthritis of the hips. Hip/Pelvis X-Ray 09/22/23 19:42 IMPRESSION: 1. Transcervical fracture of left femoral neck. 2. Mild osteoarthritis of the hips. Chest X-Ray 09/22/23 19:44 IMPRESSION: 1. Mild atelectasis at left lung base. Intraoperative X-Ray 09/24/23 14:49 IMPRESSION: 1. Near-anatomic alignment post likely percutaneously placed internal fixation of a transcervical fracture of the proximal left femur with 3 cannulated lag screws. Abdomen X-Ray 09/25/23 16:20 IMPRESSION: NO ACUTE ABDOMINAL FINDINGS.
--- NOTE | 2023-10-22 06:38 | PM.DS ---
DS: Admitting Diagnosis Discharge Date 09/25/23 Admitting Diagnosis fall DS: Discharge Diagnosis Discharge Diagnosis (1) Closed fracture of neck of left femur: Qualifiers: Encounter type: subsequent encounter Fracture healing: with routine healing Qualified Code(s): S72.002D - Fracture of unspecified part of neck of left femur, subsequent encounter for closed fracture with routine healing Code(s): S72.002A - Fracture of unspecified part of neck of left femur, initial encounter for closed fracture Status: Acute DS: Summary Hospital Course Hospital Course: Interval history: 77-year-old male with a past medical history significant for arthritis present to the emergency room with complaints of left hip pain. CT imaging showed oblique transcervical fracture of the left femoral neck. He states he was out to get the mail and he stepped wrong into a divot in the road causing his weight to shift onto his hip. Orthopedics was consulted and patient was admitted for further workup. 09/22: Mr. Paul is seen resting in bed in no acute distress. He reports pain to his left groin that he rates a 4/10. He says that his pain is controlled with his current regimen. Overall he just feels stiff from being on bedrest and unable to move. He denies headache, dizziness, chest pain, shortness a breath, abdominal pain, nausea, vomiting, diarrhea, or constipation. He denies paresthesias or numbness to his left lower extremity. 09/23: Patient to OR with Orthopedics today for percutaneous pinning of left femoral neck fracture. No acute events overnight. 09/24 pt is seen and examined today. He is up in the chair- alert, oriented, pain is at 3 - tolerable. If stable- and placement in place- anticipate possible discharge tomorrow <Sofia Collins, ACID CORRECTION HAND - Last Filed: 09/26/23 07:19> Interval history: 77-year-old male with a past medical history significant for arthritis present to the emergency room with complaints of left hip pain. CT imaging showed oblique transcervical fracture of the left femoral neck. He states he was out to get the mail and he stepped wrong into a divot in the road causing his weight to shift onto his hip. Orthopedics was consulted and patient was admitted for further workup. 09/22: Mr. Paul is seen resting in bed in no acute distress. He reports pain to his left groin that he rates a 4/10. He says that his pain is controlled with his current regimen. Overall he just feels stiff from being on bedrest and unable to move. He denies headache, dizziness, chest pain, shortness a breath, abdominal pain, nausea, vomiting, diarrhea, or constipation. He denies paresthesias or numbness to his left lower extremity. 09/23: Patient to OR with Orthopedics today for percutaneous pinning of left femoral neck fracture. No acute events overnight. 09/24 pt is seen and examined today. He is up in the chair- alert, oriented, pain is at 3 - tolerable. If stable- and placement in place- anticipate possible discharge tomorrow Today patient is s/p ORIF postop day 1, seen by his surgeon and okay to discharge patient to [facility] rehab. Time Spent with Patient Time attestation: Total time spent providing and/or coordinating discharge services: Discharge Plan Discharge Attending physician on discharge: Sofia Collins Consulting providers: Robb Hidalgo; Sheree Saab; Manny Gomez; Deedee Adorno; Boo Virk; Luís Chan; Spencer Lewis; Lasha Almaraz; Nandini Bernstein; Ronnie Gamboa V.; Sofia Collins Discharging Clinician: Susy Robins Patient Disposition: Inpatient Rehab Facility Activity: may shower, no driving and follow weight bearing status Diet: as tolerated Discharge Instructions: Postoperative Hip Fracture Instructions Dr. Robb Hidalgo [phone] Dressing to be changed daily with an island dressing beginning on post op day #2. May stop dressing changes at post op da
== END 2023-09-25 19:55 | DRG 482 ==
LOC: ANHED 19:31 → ANH3MEDSUR 19:56
PROVIDERS: Nurse Practitioner Acute Care; Nurse Practitioner Family; Orthopaedic Surgery; Admitting Provider Internal Medicine; Emergency Provider Physician Assistant; Visit Provider Family Medicine
PROC: 0QS734Z Reposition Left Upper Femur with Internal Fixation Device, Percutaneous Approach (ICD-10-PCS; principal; 2023-09-24 13:00)
DX: S72.032A Displaced midcervical fracture of left femur, initial encounter for closed fracture (principal); M19.90 Unspecified osteoarthritis, unspecified site; X50.1XXA Overexertion from prolonged static or awkward postures, initial encounter
CPT/HCPCS: 36415; 71045; 72192; 73502; 74018; 80053; 81001; 82306; 83735; 85025; 85610; 85730; 86140; 86850; 86900; 86901; 93005; 97110; 97161; 97165; 97530; 99199; 99285; A9270; G0378; J0690; J1170; J1650; J2405; J2704; J3010; J7120; J7512

== ENCOUNTER 2024-04-28 11:14 | Outpatient (CLI) | payer MEDICARE, SELFPAY ==
--- NOTE | 2024-04-28 11:35 | ECG_ITS ---
Test Date: 2024-04-28 11:46:33 Measurements Intervals [place] Rate: 78 P: -69 SC: 160 QRS: -30 QRSD: 102 T: 54 QT: 365 QTc: 416 Interpretive Statements ECTOPIC ATRIAL RHYTHM VOLTAGE CRITERIA FOR LVH ANTEROSEPTAL MYOCARDIAL INFARCTION , OF INDETERMINATE AGE BASELINE ARTIFACT- I, II, III, AVR, AVL, AVF, V1 ABNORMAL ECG Compared to ECG 09/22/2023 19:11:22 NO SIGNIFICANT CHANGE Electronically Signed On 04-28-2024 11:55:37 CUSTOMER PRICING MANAGER by Lasha Almaraz D.O.
--- OUTSIDE RECORDS SUMMARY | 2024-04-28 11:56 | XMS_ITS | Clinical Summary ---
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 Gender Identity Not on file Sexual Orientation Not on file Plan of Treatment Health Maintenance Due Date Last Done Comments Hepatitis C Virus (HCV) Screening 1945 TdaP Immunization 1945 Pneumococcal Immunization (5 0+ years) (1 of 1 - PCV) 10/31/1995 Zoster Immunization (1 of 2) 10/31/1995 Respiratory Syncytial Virus (RSV) Immunization (Adult) (1 - 1-dose 75+ series) 2020 Influenza Immunization (#1) 2023 SARS-COV-2 Immunization ( - 2023- season) 2023 Hepatitis B Immunization Aged Out No longer eligible based on patient's age to complete this topic Meningococcal Immunization (ACWY) Aged Out No longer eligible based on patient's age to complete this topic Rotavirus Immunization Aged Out No lo nger eligible based on patient's age to complete this topic
--- OUTSIDE RECORDS SUMMARY | 2024-04-28 11:56 | XMS_ITS | Clinical Summary ---
Author Organization [facility] Address [address] [place] [address] Care Team Providers Care Assistant Surveyor Name Role Phone No, Physician Primary Care Provider [phone] Allergies Active Allergy Reactions Criticality Noted Date Comments Sulfa Unknown 07/18/2023 Medications meloxicam (MOBIC) 15 mg tablet daily 07/02/2023 Active Active Problems Problem Noted Date Diagnosed Date Chronic pain of both knees 07/19/2023 Flexion contracture of knee, left 07/19/2023 Imaging abnormality 07/19/2023 Bilateral primary osteoarthritis of knee 024 Flexion contracture of knee, right 07/19/2023 Surgical History Surgery Date Site/Laterality Comments TONSILLECTOMY 03/25/1955 - 03/24/1956 N/A Medical History Medical History Date Comments Hearing loss 1982 Social History Tobacco Use Types Packs/Day Years Used Date Smoking Tobacco: Never Smokeless Tobacco: Never Tobacco Cessation:Counseling Given: Not Answered Personal Safety Answer Date Recorded Getting School Help Needed Not on file 06/16 Sex and Gender Information Value Date Recorded Sex Assigned at Not on file 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 Gender Identity Not on file Sexual Orientation Not on file Obstetrics History Plan of Treatment Health Maintenance Due Date Last Done Comments Depression Screening 1945 Fall Risk Assessment 1945 Hepatitis C Screening 1945 DTaP/Tdap/Td Vaccine (1 - Tdap) 1956 Hepatitis B Screening 10/31/1963 Zoster Vaccine (1 of 2) 10/31/1995 Pneumococcal vaccine 65+ (1 of 1 - PCV) 2010 Well Visit 65+ 2010 Covid-19 Vaccine (2023-2 5 season) 2023 12/07/2021, 02/04/2021, 05/27/2020, Additional history exists Influenza Vaccine (#1) 2023 02/04/2021 Insurance MEDICARE [facility] [address] [address] Care Teams Assistant Surveyor Relationship Specialty Start Date End Date No, Physician PCP - General 07/05/23
--- OUTSIDE RECORDS SUMMARY | 2024-04-28 11:56 | XMS_ITS | Referral Summary ---
Author Organization [facility] Address [address] [place] [address] Care Team Providers Care Hatchery Attendant Name Role Phone No, Physician Primary Care Provider [phone] Allergies Active Allergy Reactions Criticality Noted Date Comments Sulfa Unknown 07/18/2023 Medications meloxicam (MOBIC) 15 mg tablet daily 07/02/2023 Active Active Problems Problem Noted Date Diagnosed Date Chronic pain of both knees 07/19/2023 Flexion contracture of knee, left 07/19/2023 Imaging abnormality 07/19/2023 Bilateral primary osteoarthritis of knee 024 Flexion contracture of knee, right 07/19/2023 Social History Tobacco Use Types Packs/Day Years Used Date Smoking Tobacco: Never Smokeless Tobacco: Never Tobacco Cessation:Counseling Given: Not Answered Personal Safety Answer Date Recorded Getting School Help Needed Not on file 06/16 Sex and Gender Information Value Date Recorded Sex Assigned at Not on file 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
== END 2024-04-28 11:15 | disposition home or self-care (01) ==
PROVIDERS: PCP Nurse Practitioner Family; Visit Provider Orthopaedic Surgery
DX: R94.31 Abnormal electrocardiogram [ECG] [EKG] (principal); I10 Essential (primary) hypertension
CPT/HCPCS: 93005

== ENCOUNTER 2024-06-26 07:28 | Outpatient (CLI) | payer MEDICARE, SELFPAY ==
--- NOTE | ~2024-06-26 | NM_ITS ---
EXAMINATION: NM adrian stress w perfusion DATE: 06/26/2024 11:28 INDICATION: Cardiac evaluation for preoperative planning TECHNIQUE: Rest images were obtained following intravenous administration of 10 mCi Tc99m tetrofosmin (Myoview). The patient was infused intravenously with Lexiscan (Regadenoson). Then, 31.8 mCi Tc99m t etrofosmin (Myoview) was administered intravenously, and stress images were obtained. Data was recons tructed into short axis and horizontal and vertical long axis SPECT images. Gated SPECT images were a lso obtained. COMPARISON: None. FINDINGS: Moderate sized, moderate severity nonreversible perfusion defect consistent with infarct in volving the apical, apical septal, apical anterior and apical lateral segments. There is a second sma ll mild nonreversible infarct at the mid and basilar anterolateral segments. No reversible ischemia. There is normal left ventricular chamber size, wall motion and ejection fraction. Left ventricular e jection fraction measures 48%. IMPRESSION: 1. 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 2. Small mild infarct at the mid and basilar anterolateral segments. 3. No reversible perfusion defects to suggest ischemia. 4. Left ventricular ejection fraction measuring 48%. Reviewed, dictated and finalized at location A. IMPRESSION: 1. Moderate-sized moderate severity infarct at the apical, apical septal, apica l anterior and apical lateral segments. 2. Small mild infarct at the mid and basilar anterolateral segments. 3. No reversible perfusion defects to suggest ischemia. 4. Left ventricular ejection fraction measuring 48%.
--- NOTE | 2024-06-26 07:31 | ECHO_ITS ---
Patient Info Name: Oskar Paul Age: 78 years : 1945 Gender: Male Ht: 72 in Wt: 210 lbs BSA: 2.22 m2 HR: 78 bpm BP: 148 / 94 mmHg Technical Quality: Fair Exam Date: 06/26/2024 8:09 AM Exam Location: Echo Lab Patient Status: Outpatient Admit Date: 06/26/2024 Staff Ordering Physician: Lasha Almaraz DO Plater Production: Tiffanie Van RDCS Attending Provider: Lasha Almaraz DO Referring Physician: Sung DINH; Exam Type: CA echo dop color flow w con Study Info Indications R94.31 - Abnormal electrocardiogram ECG EKG Complete two-dimensional, color flow and Doppler transthoracic echocardiogram is performed with contrast to opacify the left ventricle and to improve the deliniation of the left ventricle endocardial borders. Contrast/Agitated Saline Contrast/Ag. Saline: Definity Amount: 2.00 ml IV Access Condition: patent with no signs of infiltration New IV Access: Left Summary 1. Definity contrast administered improved wall motion interpretation. 2. Left ventricular chamber dimension is normal. 3. Left ventricular systolic function is normal, estimated at 55-60%. 4. There is mild concentric increased left ventricular wall thickness. 5. The left ventricular diastolic function is grade I diastolic dysfunction. 6. E/e' 6 is not elevated. 7. Left atrial chamber dimension is mildly enlarged. 8. There is moderate aortic valve sclerosis. 9. The mitral valve has mildly calcified annulus. 10. There is trace mitral valve regurgitation. 11. No pulmonary hypertension, estimated pulmonary arterial systolic pressure is 28 mmHg. Left Ventricle E/e' 6 is not elevated. Definity contrast administered improved wall motion interpretation. Left ventricular chamber dimension is normal. Left ventricular systolic function is normal, estimated at 55-60%. There is mild concentric increased left ventricular wall thickness. The left ventricular diastolic function is grade I diastolic dysfunction. Right Ventricle Right ventricular chamber dimension is normal. Right ventricular systolic function is normal. Left Atria Left atrial chamber dimension is mildly enlarged. Right Atria Right atrial chamber dimension is normal. Aortic Valve The aortic valve is trileaflet. There is moderate aortic valve sclerosis. There is no aortic valve stenosis. There is no aortic valve regurgitation. Pulmonic Valve There is no pulmonic regurgitation. Mitral Valve The mitral valve has mildly calcified annulus. There is no mitral valve stenosis. There is trace mitral valve regurgitation. Tricuspid Valve There is no tricuspid valve regurgitation. No pulmonary hypertension, estimated pulmonary arterial systolic pressure is 28 mmHg. Pericardium/Pleural There is no pericardial effusion. Inferior Vena Cava Normal inferior vena cava with >50% collapse upon inspiration consistent with normal right atrial pressure, 5 mmHg. Aorta The aortic root size at the sinus of Valsalva is normal. Left Ventricular Outflow Tract Name Value Normal LVOT 2D LVOT Diameter 2.28 cm LVOT Doppler LVOT Peak Gradient 4 mmHg LVOT Mean Gradient 2 mmHg LVOT VTI 21.95 cm LVOT VTI/AV VTI Ratio 0.78 LVOT Stroke Volume 89.71 ml LVOT CO 17.30 l/min LVOT CI 7.80 L/min/m2 Pulmonic Valve Name Value Normal PV Doppler PV Peak Gradient 6 mmHg Mitral Valve Name Value Normal MV Doppler MV Decel Fallon 245.67 cm/s2 MV PHT 0 s MV Area (PHT) 3.47 cm2 4.00-5.00 MV Diastolic Function MV E Peak Velocity 53.78 cm/s MV A Peak Velocity 117.36 cm/s MV E/A 0.46 MV Decel Time 0 s MV Annular TDI MV E/e' (Septal) 12.11 <=8.00 MV E/e' (Lateral) 4.79 <=8.00 MV E/e' (Average) 8.45 Tricuspid Valve Name Value Normal TV Regurgitation Doppler TR Peak Velocity 241.17 cm/s TR Peak Gradient 23 mmHg Estimated PAP/RSVP RA Pressure 5 mmHg <=5 PA Systolic Pressure 28 mmHg <36 RV Systolic Pressure 28 mmHg <36 Aorta Name Value Normal Ascending Aorta Ao Root Diameter (MM) 3.58 cm Ao Root Diam Index (MM) 1.62 cm/m2 Aortic Valve Name Value Normal AV Doppler AV Peak Velocity 136.93 cm/s AV Peak Gradient 7 mmHg AV Mean Gradient 5 mmHg AV VTI 28.26 cm AV Area (Cont Eq VTI) 3.18 cm2 >=3.00 AV Area (Cont Eq Hao) 3.06 cm2 AV Regurgitation 2D LVOT Area 4.09 cm2 Ventricles Name Value Normal LV Dimensions 2D/MM IVS Diastolic Thickness (2D) 1.61 cm 0.60-1.00 LVID Diastole (2D) 4.38 cm 4.20-5.80 LVIW Diastolic Thickness (2D) 1.22 cm 0.60-1.00 LVID Systole (2D) 3.02 cm 2.50-4.00 LVOT Diameter 2.28 cm LV Mass (2D Cubed) 243.07 g 88.00-224.00 LV Mass Index (2D Cubed) 0.01 g/cm2 0.00-0.01 Relative Wall Thickness (2D) 0.56 LV Fractional Shortening/Ejection Fraction 2D/MM LV Fractional Shortening (2D) 31 % 25-43 LV EF (2D Teicholz) 59 % 52-72 LV Diastolic Volume (4C MOD) 111.73 ml LV EF (4C MOD) 55 % LV Diastolic Volume (2C MOD) 119.04 ml LV EF (2C MOD) 56 % LV Diastolic Volume (BP MOD) 113.85 ml 62.00-150.00 LV Diastolic Volume Index (BP MOD) 0.05 l/m2 0.03-0.07 LV Systolic Volume (BP MOD) 53.05 ml 21.00-61.00 LV Systolic Volume Index (BP MOD) 0.02 l/m2 0.01-0.03 LV EF (BP MOD) 53 % 52-72 LV Diastolic Length (4C) 8.38 cm LV Systolic Length (4C) 7.70 cm LV Stroke Volume (4C MOD) 61.51 ml RV Dimensions 2D/MM RVID Diastole (2D) 3.74 cm 2.50-3.50 Atria Name Value Normal LA Dimensions LA Dimension (MM) 3.61 cm 3.00-4.10 LA Volume (4C A-L) 93.86 ml LA Volume (BP A-L) 77.57 ml RA Dimensions RA Area (4C) 16.88 cm2 <=18.00 Report Signatures
--- NOTE | 2024-06-26 07:31 | EST_ITS ---
Patient Info Name: Oskar Paul Age: 78 years : 1945 Gender: Male Ht: 72 in Wt: 215 lbs BSA: 2.25 m2 Exam Date: 06/26/2024 10:28 AM Exam Location: Echo Lab Patient Status: Outpatient Admit Date: 06/26/2024 Staff Ordering Physician: Lasha Almaraz DO Attending Provider: Lasha Almaraz DO Exercise Physician: Lasha Almaraz DO Exam Type: CA stress adrian w [place] Study Info Indications Z01.810 - Encounter for preprocedural cardiovascular examination A regadenoson stress test was performed. Summary 1. 1. Negative lexiscan stress test for ischemic ST changes by ECG criteria. 2. 2. Baseline hypertension. 3. 3. Nuclear scan to follow and will be reported separately. Please correlate with it. 4. 4. Patient informed of the above results. Protocol: Lexiscan Stress ECG Details Stage: REST Duration (min): 1 min : 34 sec HR (bpm): 73 SBP (mmHg): 147 DBP (mmHg): 92 Stage: REST Duration (min): 9 min : 40 sec HR (bpm): 73 SBP (mmHg): 147 DBP (mmHg): 92 Stage: STAGE 1 Duration (min): 1 min : 0 sec HR (bpm): 74 SBP (mmHg): 156 DBP (mmHg): 101 Stage: RECOVERY Duration (min): 1 min : 0 sec HR (bpm): 88 SBP (mmHg): 156 DBP (mmHg): 101 Stage: RECOVERY Duration (min): 1 min : 26 sec HR (bpm): 87 SBP (mmHg): 156 DBP (mmHg): 101 Rest HR: 73 bpm Peak HR: 92 bpm Rest Sys BP: 147 mmHg Peak Sys BP: 156 mmHg Max Pred HR: 142 bpm % Max Pred HR: 65 % Target HR: 121 bpm Max RPP: 14,352 bpm*mmHg Termination Reason: Completed protocol Cardiac Symptoms: Shortness of breath Total Time: 1 min : 0 sec Rest BP: 92 mmHg Peak BP: 101 mmHg Total Dose: 0.4 mg Resting ECG Sinus rhythm, extensive anterior infarct, age indeterminate. Stress ECG No ST changes. Arrhythmias None. Report Signatures
--- OUTSIDE RECORDS SUMMARY | 2024-06-26 07:32 | XMS_ITS | Patient Health Record ---
Author Organization [facility] Address [address] [facility] [address], [place] [address] Care Team Providers Care Plush Weaver Name Role Phone Justen Merritt MD, Shashank Primary Care Provider [phone] Shashank Campuzano Jr Unavailable Unavai lable ALLERGIES No Known Allergies REASON FOR REFERRAL No Information MEDICATIONS Medication SIG (Take, Route, Fr equency, Duration) Notes Start Date End Date Status Meloxicam 15 MG 1 tablet Orally Once a day for 30 days 05/30/2023 Active Meloxicam 15 MG 1 tablet Orally Once a day for 30 days 07/02/2023 Active SOCIAL HISTORY Tobacco Use: Social History Observation Description Date Details (start date - stop date) Never Smoker NA - NA Sex Assigned At : Social History Observation Description Sex Assigned At Unknown Tobacco Use: Question Answer Notes Patient is a: nonsmoker Alcohol screening: Question Answer Notes Did you have a drink containing alcohol in the p ast year? No Points 0 Interpretation Negative PROBLEMS Problem Type ICD Code Onset Dates Problem Status W/U Status Risk SNOMED Code Notes Problem Bilateral primary osteoarthritis of knee (M17.0) 05/30/19 Active confirmed [id number] Problem Localized swelling, mass and lump, right lower limb (R22.41) 05/30/19 Active confirmed [id number] Encounters Encounter Location Date Provider Diagnosis [facility] [address] [facility] [address], [place] [address] 07/02/2023 Shashank Campuzano Jr, MD PLAN OF TREATMENT No Information Insurance Providers Payer Name Payer Address Payer Phone Subscriber Number Group Number Insured Name Patient Relationship to Insured Coverage Start Date Coverage End Date Medicare [address] [place] [phone] [id number] not provided Oskar Paul Self - patient is the insured [facility] [address] [place] [address] [id number] Oskar Paul Self - patient is the insured
--- OUTSIDE RECORDS SUMMARY | 2024-06-26 07:32 | XMS_ITS | Clinical Summary ---
Author Organization 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
--- OUTSIDE RECORDS SUMMARY | 2024-06-26 07:32 | XMS_ITS ---
Author Organization [facility] Address [address] [address] Care Team Providers Care Crop Adjuster Name Role Phone Justen Merritt MD, Shashank Primary Care Provider Shashank Campuzano Jr Unavailable Unavai lable Encounters Encounter Location Date Provider Diagnosis [facility] [address] [facility] [address], [place] [address] 06/13/2023 Shashank Campuzano Jr, MD PLAN OF TREATMENT No Information
--- OUTSIDE RECORDS SUMMARY | 2024-06-26 07:32 | XMS_ITS | Clinical Summary ---
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 Gender Identity Not on file Sexual Orientation Not on file Obstetrics History Plan of Treatment Health Maintenance Due Date Last Done Comments Depression Screening 1945 Fall Risk Assessment 1945 Hepatitis C Screening 1945 DTaP/Tdap/Td Vaccine (1 - Tdap) 1956 Hepatitis B Screening 10/31/1963 Pneumococcal vaccine 65+ (1 of 1 - PCV) 10/31/1995 Zoster Vaccine (1 of 2) 10/31/1995 Well Visit 65+ 2010 Covid-19 Vaccine (2023-2 5 season) 2023 12/07/2021, 02/04/2021, 05/27/2020, Additional history exists Influenza Vaccine (#1) 2023 02/04/2021 Insurance MEDICARE [facility] [address] [place] [address] Care Teams Tram Inspector Relationship Specialty Start Date End Date No, Physician PCP - General 07/05/23
--- OUTSIDE RECORDS SUMMARY | 2024-06-26 07:32 | XMS_ITS ---
Author Organization [facility] Address [address] [address] Care Team Providers Care Board Certified Orthodontist Name Role Phone Justen Merritt MD, Shashank Primary Care Provider Shashank Campuazno Jr Unavailable Unavai lable REASON FOR VISIT meloxicam MEDICATIONS Medication SIG (Take, Route, Fr equency, Duration) Notes Start Date End Date Status Meloxicam 15 MG 1 tablet Orally Once a day for 30 days 07/02/2023 Active Encounters Encounter Location Date Provider Diagnosis [facility] [address] [address] 07/02/2023 Shashank Campuzano Jr, MD PLAN OF TREATMENT Medication Medication Name Sig Start Date Stop Date Notes Meloxicam 15 MG 1 tablet Orally Once a day for 30 days 11/2023
--- OUTSIDE RECORDS SUMMARY | 2024-06-26 07:33 | XMS_ITS | Referral Summary ---
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
--- OUTSIDE RECORDS SUMMARY | 2024-06-26 07:33 | XMS_ITS ---
Author Organization [facility] Address [address] [address] Care Team Providers Care Regional Climate Change Analyst Name Role Phone Justen Merritt MD, Shashank Primary Care Provider [phone] Shashank Campuzano Jr Unavailable Unavai lable Encounters Encounter Location Date Provider Diagnosis [facility] [address] [facility] [address], [place] [address] 06/17/2023 Shashank Campuzano Jr, MD PLAN OF TREATMENT No Information
[2024-06-26] MEDS: PERFLUTREN LIPID MICROSPHERES 1.5 ML VIAL DILUTED TO 10 ML TOTAL VOLUME IV PUSH (08:45)
--- NOTE | 2024-06-26 09:51 | IVDEFINITY ---
Prior to administration of IV Definity the patient was educated on the risks and benefits of the imaging enhancing agent including potential adverse side effects. The patient verbalized understanding. Allergies were verified. No exclusion criteria were identified and at least one of the following inclusion criteria were met: 1) physician request, 2) patient technically difficult to image (per the [employer] Echocardi[employer] guidelines of two or more segments not discernable within the apical view), or 3) questionable left ventricular function. ?
== END 2024-06-26 07:29 | disposition home or self-care (01) ==
LOC: ANHCARD 07:30
PROVIDERS: PCP Nurse Practitioner Family; Visit Provider Internal Medicine Cardiovascular Disease
DX: Z01.810 Encounter for preprocedural cardiovascular examination (principal); R94.31 Abnormal electrocardiogram [ECG] [EKG]; I51.89 Other ill-defined heart diseases; I35.8 Other nonrheumatic aortic valve disorders; I34.81 Nonrheumatic mitral (valve) annulus calcification; I21.29 ST elevation (STEMI) myocardial infarction involving other sites
CPT/HCPCS: 78452; 93017; A9502; C8929; J2785; Q9957

== ENCOUNTER 2024-07-30 10:12 | Outpatient (CLI) | payer MEDICARE, SELFPAY ==
--- OUTSIDE RECORDS SUMMARY | 2024-07-30 10:38 | XMS_ITS | Referral Summary ---
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
--- OUTSIDE RECORDS SUMMARY | 2024-07-30 10:38 | XMS_ITS | Clinical Summary ---
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
--- OUTSIDE RECORDS SUMMARY | 2024-07-30 10:38 | XMS_ITS | Clinical Summary ---
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
[2024-07-30 11:43] LABS: Basophils Absolute Auto 0.1 K/mm3 (0.0-0.1); Basophils Percent Auto 0.9 % (0.2-1.2); Eosinophils Absolute Auto 0.2 K/mm3 (0-0.3); Eosinophils Percent Auto 2.2 % (0-4.4); Hematocrit 44.4 % (42.0-52.0); Hemoglobin 14.9 g/dL (14.0-18.0); Immature Granulocyte Absolute 0.02 K/mm3 (0.00-0.031); Immature Granulocyte Percent A 0.2 % (0-0.5); Lymphocytes Absolute Auto 2.39 K/mm3 (0.9-3.2); Lymphocytes Percent Auto 29.1 % (18.3-44.2); Mean Corpuscular HGB Conc 33.6 g/dl (32-36); Mean Corpuscular Volume 95.3 fl (80-100); Monocytes Absolute Auto 0.9 K/mm3 (0.1-0.6); Monocytes Percent Auto 10.3 % (2.6-8.5); Neutrophils Absolute Auto 4.7 K/mm3 (1.3-6.7); Neutrophils Percent Auto 57.3 % (45.5-73.1); Platelet Count Result 249 k/mm3 (150-375); Red Blood Count 4.66 M/mm3 (4.6-6.20); Red Cell Distribution Width 12.9 % (11.5-14.5); White Blood Count 8.2 K/mm3 (4.5-10.0)
[2024-07-30 11:49] LABS: Add Urine Microscopic? NO; Appearance Urine Clear (Clear); Bilirubin Urine Negative (Negative); Blood Urine Negative (Negative); Color Urine Yellow (Yellow); Glucose Urine UA Negative (Negative); Ketones Urine Negative (Negative); Leukocyte Esterase Ur Negative LEU/UL (Negative); Nitrate Urine Negative (Negative); Protein Urine Negative (Negative); Specific Grav Ur 1.016 (1.001-1.035); pH Urine 5.5 (5.0-9.0)
[2024-07-30 11:53] LABS: INR 1.1; Partial Thromboplastin Time 28.1 Seconds (22.3-36.8); Prothrombin Time 14.7 Seconds (11.1-14.7)
[2024-07-30 11:54] LABS: Anion Gap 8 mmol/L (4-12); Blood Urea Nitrogen 14 mg/dL (9-20); Calcium 9.2 mg/dL (8.4-10.2); Carbon Dioxide 26 mmol/L (22-30); Chloride 107 mmol/L (98-107); Estimated Glomerular Filt Rate > 60; Glucose 95 mg/dL (65-110); Potassium 4.4 mmol/L (3.4-5.0); Sodium 141 mmol/L (137-145)
[2024-07-30 11:59] LABS: Urine Cotinine NEGATIVE
[2024-07-30 12:31] LABS: Hemoglobin A1C 5.1 % (<5.7)
[2024-07-30 12:52] LABS: MRSA (PCR) NOT DETECTED (NOT DETECTE)
== END 2024-07-30 10:13 | disposition home or self-care (01) ==
LOC: ANHSURGERY 10:19
PROVIDERS: PCP Nurse Practitioner Family; Visit Provider Orthopaedic Surgery
DX: Z01.812 Encounter for preprocedural laboratory examination (principal); M16.12 Unilateral primary osteoarthritis, left hip
CPT/HCPCS: 80048; 80307; 81003; 82040; 83036; 85025; 85610; 85730; 86850; 86900; 86901; 87641

== ENCOUNTER 2024-08-13 17:56 | Inpatient (IN) | payer MEDICARE, SELFPAY ==
--- NOTE | 2024-07-30 10:08 | PC.NURSE ---
Report to the Outpatient Waiting Room, entrance under the green pavilion located off [facility], at time _6 AM on date _08/12/24 . Planned Procedure Time: __7:30 AM .? Time changes happen often and if your time is changed the preop area will call you the afternoon before. - You and your visitor will be asked to self-screen and do not enter if you have any COVID symptoms. Please call surgeon if you need to reschedule. - A mask is optional within the hospital at this time. Patients may have clear liquids (water, carbonated beverages, clear teas, apple juice) until 3 hours prior to surgery ( 4:30 AM) with a maximum of 20 ounces. - No food from midnight until time of surgery and no smoking, or chewing tobacco (or any form of nicotine). No chewing gum, candy or mints. Take only the following medications with a SIP of water on the morning of surgery: ___NONE DO NOT STOP ANY OF YOUR OTHER PRESCRIPTION MEDICATIONS PRIOR TO SURGERY EXCEPT THE FOLLOWING Hold all vitamins and supplements for 3 days per anesthesiologist.LAST DOSE 08/08/24 Medications to discontinue per physician PATIENT STATES HOLD ASPIRIN 7 DAYS PRE OP PER DR STOKES Date to take last dose___08/04/24 Please no make-up, nail turkmen, hairspray, perfume, deodorant, or body powder the day of surgery.? No jewelry (including any body piercings) or valuables the day of surgery, leave them at home.? Please take a shower or bath the night before, or the morning of, surgery with an antibacterial soap.? Wear comfortable, loose fitting clothing.? Children are encouraged to wear pajamas. - Jewelry must be removed prior to entering the operating room.? Rings and piercings that are not removed may be cut off. - The hospital will not accept responsibility for valuables.? - Please leave all valuables, including medications, at home the day of surgery. If you are going home after surgery, a licensed lease purchase truck driver must drive you home.? - NO public transportation without another adult if you receive anesthesia. - We recommend that an adult stay with you for 24 hours following discharge. - We also recommend that you do not drive, make important decision, drink alcoholic beverages, or take any drugs that were not prescribed by your health care provider for at least 24 hours after your discharge time. For Pediatric surgeries, we recommend two adults accompany the child home. Follow any additional instructions given to you from your surgeon. VERBAL AND WRITTEN instructions given to _PATIENT AND CAMMIE and asked if any additional questions and then verbalized understanding. Patient advised to call surgeon office or pre surgery nurse liaison [phone] if any additional questions.
[2024-07-30 10:24] VITALS: BMI 30.7
[2024-07-30 11:15] VITALS: BP 126/74; PULSE 80; RESP 18; TEMP 36.6; O2SAT 97
[2024-08-12] VITALS (22 sets, daily range): BP systolic 72–149; BP diastolic 53–82; PULSE 73–101; RESP 14–22; TEMP 35.9–36.5; O2SAT 96–100; BMI 31.7
--- OUTSIDE RECORDS SUMMARY | 2024-08-12 00:28 | XMS_ITS | Clinical Summary ---
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
--- OUTSIDE RECORDS SUMMARY | 2024-08-12 00:28 | XMS_ITS | Clinical Summary ---
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
--- OUTSIDE RECORDS SUMMARY | 2024-08-12 00:28 | XMS_ITS | Referral Summary ---
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
[2024-08-12] MEDS: ACETAMINOPHEN 500 MG TABLET 1000 MG PO (06:50)
[2024-08-12] MEDS: TRANEXAMIC ACID 1,000MG/ISO100 1,000 MG/100 ML BAG 200 MG IVPB (06:50)
[2024-08-12] MEDS: LACTATED RINGERS 1,000 ML 30 ML IV CONT ×2 (06:50→13:22)
--- NOTE | 2024-08-12 07:20 | P.PNAN_ITS ---
Anes - Initial Pre Proc Eval Procedure: Operation Date: 08/12/24 07:30 Proposed Procedures p Left Total Hip Arthroplasty, with Hardware Removal - Robb Hidalgo MD Date/Time: 08/12/24 07:20 Surgeon: Robb Hdialgo MD Pre Op Diagnosis: left hip djd Patient Data Age: 78 Gender: M Height: 1.83 m Weight: 102.6 kg Last Vital Signs Temp 97.9 F 07/30/24 11:15 Pulse 80 07/30/24 11:15 Resp 18 07/30/24 11:15 BP 126/74 07/30/24 11:15 Pulse Ox 97 07/30/24 11:15 O2 Del Method Room Air 07/30/24 11:15 Allergies Allergy/AdvReac Type Severity Reaction Status Date / Time Sulfa (Sulfonamide Allergy Unknown Verified 08/06/24 13:03 Antibiotics) Home Medications ?Medication ?Instructions ?Recorded ?Confirmed ?Type acetaminophen 325 mg tablet 650 mg (2 x 325 mg) PO Q6H PRN 10/06/23 08/06/24 Rx Mild Pain (1-3) Or Fever #0 tabs aspirin 81 mg tablet,delayed 81 mg PO DAILY 06/03/24 08/06/24 History release calcium 600 mg (as 1 tablet PO DAILY 07/30/24 08/06/24 History carbonate)-vitamin D3 5 mcg (200 unit) tablet (Calcium 600 + D(3)) chlorhexidine gluconate 4 % 1 applic topical DAILY #237 mL 07/31/24 08/06/24 Rx topical liquid (Hibiclens) Patient hx anesthesia problems: none Family hx anesthesia problems: none Results Review: All pre-operative results and documents have been reviewed as part of the pre- operative evaluation. [facility] Past Medical History Medical History DVT (deep venous thrombosis) 09/2023 postoperative Bilateral knee pain Arthritis Surgical History Surgical History History of hip surgery 09/24/23 closed reduction percutaneous pinning left femoral neck fracture, Dr Hidalgo History of tonsillectomy Social History Social History Smoking status: Never smoker Second hand tobacco smoke exposure: No Additional smoking assessment comments: DENIES ANY FORM OF TOBACCO USE Alcohol intake: never Substance use: never Substance use type: does not use Do You Feel Safe in your Home?: Yes Lack of Transportation: No Lack of Food: Never True Current Housing: I Have Housing Concerned About Future Housing: No Difficulty Paying Gas/Electric Bills: No Difficulty Paying for Meds: No Currently Unemployed: No Education: Bachelor's Degree Difficulty w/ Childcare or Family Care: No Living arrangements: with family Gender identity (if verbalized by the patient): Male Spiritual care concerns: No Anes - Eval Final PreProcedure Day of Procedure 08/12/24 07:20 Patient weight: obese Heart: regular rate and rhythm Lungs: clear to auscultation Airway: Mallampati scale class II Neurological: alert and oriented Last oral intake: >/= 8 hours ASA classification: II Emergent: no Anesthetic plan: proceed Anesthesia type and monitoring: general ETT and standard monitoring Results Review: All pre-operative results and documents have been reviewed as part of the pre- operative evaluation. Informed Consent: The patient's anesthetic plan and its attendant risks and benefits were discussed with the patient/family/POA. Questions were solicited and answers provided to the satisfaction of the patient/family/POA.
--- NOTE | 2024-08-12 07:28 | WPDHPUPDATE1 ---
History and Physical Update Update Date/Time: 08/12/24 07:28 History and Physical has been reviewed, including an updated exam of the patient. There are NO changes in the patient's condition. Risks, benefits, and alternatives have been discussed and questions answered. Patient agrees to proceed with procedure.
[2024-08-12] MEDS: ceFAZolin 2 GM/D5W 50 ML 2 GM/50 ML BAG IVPB ×2 (07:30→18:31)
[2024-08-12] MEDS: SODIUM CHLORIDE 0.9% IV 37.7 ML, MORPHINE SULFATE INJ (*CRX) 2 MG, ROPivacaine HCL 1% 2... INFILTRATE (08:51)
--- NOTE | 2024-08-12 11:28 | SUR.OPER ---
H and H given to Deb
[2024-08-12 11:29] LABS: Hematocrit 36.8 % (42.0-52.0); Hemoglobin 11.7 g/dL (14.0-18.0)
[2024-08-12] MEDS: VANCOMYCIN 1,500 MG/NS 500 ML 1,500 MG/500 ML BAG 333.33 MG IVPB (12:53)
--- NOTE | 2024-08-12 13:57 | W.PM.PROC2 ---
Procedure Note - Detailed Date of Procedure 08/12/24 Pre-op Diagnosis LEFT FEMORAL NECK FRACTURE NON UNION WITH RETAINED HARDWARE Post-op Diagnosis Same Procedure Performed LEFT HIP HARDWARE REMOVAL WITH TOTAL HIP REPLACEMENT Surgeon Robb Hidalgo MD Anesthesia General Description of Procedure THE PATIENT WAS TAKEN TO THE OPERATING ROOM IN STABLE CONDITION AND WAS PLACED IN THE LATERAL DECUBITUS AND THE LEFT LOWER EXTREMITY WAS PREPPED AND DRAPED IN THE STERILE FASHION. INCISION WAS MADE IN THE POSTERIOR LATERAL SIDE OF THE HIP, DOWN TO THE FASCIA LAYER. THE FASCIA WAS INCISED. 3 CANNULATED SCREWS WERE IDENTIFIED FROM PRIOR FEMORAL NECK FRACTURE FIXATION. THE HIP WAS EXPOSED. THE SHORT EXTERNAL ROTATORS WERE EXPOSED. THE SCIATIC NERVE WAS IDENTIFIED. INCISION WAS MADE THROUGH THE SHORT EXTERNAL ROTATORS AND THE CAPSULE OF THE HIP JOINT. THE HIP JOINT WAS IDENTIFIED. THERE WAS LESS THAN 1 CM OF FEMORAL NECK PROXIMAL TO THE LESSER TROCHANTER. THE CALCAR WAS STABLE WAS THE THE LESSER TROCHANTER. REMNANTS OF THE FEMORAL NECK WERE REMOVED. THE FEMORAL HEAD WAS IDENTIFIED AND REMOVED. IT WAS SIZED TO A 56. THE ACETABULUM WAS EXPOSED. THERE WAS SEVERELY OSTEOPOROTIC BONE. RETRACTORS WERE PLACED BOTH ANTERIORLY AND POSTERIORLY ALONG THE RIM OF THE ACETABULUM FOR EXPOSURE AND DEFICIENT ANTERIOR AND POSTERIOR ACETABULAR WALL BONE STOCK WAS NOTED. BEGINNING WITH A 48 REAMER THE ACETABULUM WAS REAMED TO 59 MM. A 59 MM TRIAL WAS PLACED IN 35 DEG OF ABDUCTION AND ANTEVERSION WAS IN ALIGNMENT WITH THE TRANS ACETABULAR LIGAMENT. THERE WAS GOOD COVERAGE OVER THE ANTERIOR SUPERIOR AND POSTERIOR SUPERIOR CHAVIRA. THER WAS DEFICIENT BONE IN THE POSTERIOR AND ANTERIOR WALL. THE TRIAL WAS REMOVED. BONE GRAFT WAS PLACED IN THE ACETABULUM AND PACKED IN PLACE. A 60 MM BIOMET G7 COMPONENT WAS THEN TAPPED IN TO PLACE IN 35 DEG OF ABDUCTION AND ANTEVERSION IN ALIGNMENT WITH THE TRANSVERSE ACETABULAR LIGAMENT. 3 SCREWS WERE PLACED SECURING THE ACETABULAR COMPONENT. THE ACETABULAR LINER WAS PLACED AND CHECKED FOR STABILITY. NEXT THE FEMUR WAS PREPARED WITH INITIAL CANAL FINDER THEN SEQUENTIAL BROACHING WITH A [employer] BIMETRIC HIP SYSTEM, UNTIL A 15 BROACH AND REAMER FIT WELL DOWN THE CANAL. THE BROACH FIT WELL IN 15 OF ANTEVERSION. A PLUS 6 STANDARD OFFSET NECK WITH 36 MM HEAD TRIAL WAS PLACED. THE SHUCK TEST WAS EXCELLENT AND THE STABILITY IN FLEXION AND ROTATION WAS EXCELLENT. LEG LENGTHS WERE GROSSLY EQUAL. TRIALS WERE REMOVED. A GARIMA ECHO BIMETRIC 15 STEM WAS PLACED WITH A STANDARD OFFSET NECK THE FIT WAS EXCELLENT IN 15 DEG OF ANTEVERSION. A PLUS 6 CERAMIC 36 MM FEMORAL CERAMIC HEAD WAS PLACED. THE HIP WAS TRIALED AND THE STABILITY WAS EXCELLENT WERE THE LEG LENGTHS AND THE SHUCK TEST. THE WOUND WAS IRRIGATED WITH STERILE BETADINE AND WATER FOR 3 MIN. THEN WASHED AGAIN. THE CAPSULE AND THE EXTERNAL ROTATORS WERE APPROXIMATED WITH NUMBER 1 VICRYL. THE FASCIA WITH No 2 QUIL AND THE SUB CUTANEOUS LAYER WITH 2-0 ABSORBABLE SUTURE WITH ARY TO CLOSE THE SKIN. STERILE DRESSING WAS APPLIED. PATIENT WAS PLACED BACK ON TO THE SUPINE POSITION AND WAS EXTUBATED AND SENT TO THE RECOVERY ROOM IN STABLE CONDITION Estimated Blood Loss 2,500 Complications No immediate complications Condition Stable Disposition PACU
[2024-08-12 14:10] LABS: Hematocrit 36.1 % (42.0-52.0); Hemoglobin 11.4 g/dL (14.0-18.0)
[2024-08-12] MEDS: hetaSTARCH 6%/NACL 500 ML 250 ML IV CONT (14:10)
[2024-08-12] MEDS: fentaNYL CITRATE INJ (*CRX) 100 MCG/2 ML VIAL 25 MCG IV PUSH ×2 (15:19→15:34)
--- NOTE | 2024-08-12 17:20 | ADMGEN ---
This patient, Oskar Paul, was admitted to Medical Room 340-01. Patient/family oriented to hospital policies and general routines including ID bracelet, bed and alarms, visiting hours, pain management, procedures, bathroom and other care routines, personal items, smoking policy, room service/diet, and visiting hours. Information on how to activate the Rapid Response Team has been discussed. Patient/Family are encouraged to report perceived risks to care and to ask questions if they do not understand what they are told or what they should do.
[2024-08-12] MEDS: oxyCODONE/ACETAMINOPHEN (*CRX) 5-325 MG TABLET 1 TABLET PO (17:47)
[2024-08-12] MEDS: polyethylene glycoL 3350 17 GM POWD.PACK PO (17:47)
[2024-08-12] MEDS: FAMOTIDINE 20 MG TABLET PO ×2 (17:48→20:03)
[2024-08-12] MEDS: SENNA/DOCUSATE SODIUM TABLET 2 TAB PO (17:48)
[2024-08-12] MEDS: CELECOXIB 200 MG CAPSULE PO (18:33)
[2024-08-12] MEDS: RIVAROXABAN 10 MG TABLET PO (18:33)
[2024-08-12] MEDS: IBUPROFEN IV 800 MG/200 ML 800 MG/200 ML BAG 400 MG IVPB (20:01)
[2024-08-12 21:55] LABS: Glucose Point of Care 163 mg/dl (65-105)
[2024-08-13] VITALS (8 sets, daily range): BP systolic 101–121; BP diastolic 44–72; PULSE 77–95; RESP 16–20; TEMP 35.5–36.9; O2SAT 93–97
--- NOTE | ~2024-08-13 | XR_ITS ---
EXAMINATION: XR surgery orthopedic DATE: 08/12/2024 12:14 INDICATION: Intraoperative evaluation during left total hip arthroplasty TECHNIQUE: 4 frontal views of the left hip were obtained. COMPARISON: 04/27/2024 FINDINGS: Intraoperative image during a left total hip arthroplasty demonstrate appropriate placement of a femo ral broach and trial acetabular component. The bilateral subacute component is subsequently replaced with the final acetabular component which is fixed with a few screws. The proximal tip of the femoral broach is centered over the acetabular component. No fractures in the visualized bones. Residual macario ent screw tracks are seen along the lateral margin of the intratrochanteric right femur. Portions of the pelvis are not clearly visualized. Gas is seen at the operative bed. IMPRESSION: 1. Expected appearance during left total hip arthroplasty. Reviewed, dictated and finalized at location A.
--- NOTE | ~2024-08-13 | XR_ITS ---
EXAMINATION: XR hip LT 1V DATE: 08/12/2024 14:10 INDICATION: Postoperative evaluation following left total hip arthroplasty TECHNIQUE: Anteroposterior and lateral views of the left hip were obtained. COMPARISON: Intraoperative radiograph dated 08/12/2024 FINDINGS: Interval completion of the left total hip arthroplasty with replacement of the femoral broach with a noncemented femoral component. Alignment appears near-anatomic on the single provided projection. Exp ected subcutaneous gas in the postoperative bed with overlying skin esdras. No fractures identified . IMPRESSION: 1. Left total hip arthroplasty, negative for postoperative purposes. Reviewed, dictated and finalized at location A.
[2024-08-13] MEDS: diazePAM (*CRX) 5 MG TABLET PO (00:15)
[2024-08-13] MEDS: HYDROmorphone HCL INJ (*CRX) 2 MG/ML VIAL 1 MG IV PUSH ×2 (00:16→11:06)
[2024-08-13] MEDS: ceFAZolin 2 GM/D5W 50 ML 2 GM/50 ML BAG IVPB ×2 (01:51→09:26)
[2024-08-13 05:57] LABS: Basophils Percent Auto 0.2 % (0.2-1.2); Hematocrit 26.4 % (42.0-52.0); Hemoglobin 8.3 g/dL (14.0-18.0); Immature Granulocyte Absolute 0.06 K/mm3 (0.00-0.031); Immature Granulocyte Percent A 0.5 % (0-0.5); Lymphocytes Absolute Auto 1.74 K/mm3 (0.9-3.2); Lymphocytes Percent Auto 13.8 % (18.3-44.2); Mean Corpuscular HGB Conc 31.4 g/dl (32-36); Mean Corpuscular Hemoglobin 31.7 pg (26-34); Mean Corpuscular Volume 100.8 fl (80-100); Mean Platelet Volume 10.1 fl (7.4-10.4); Monocytes Absolute Auto 1.5 K/mm3 (0.1-0.6); Monocytes Percent Auto 12.2 % (2.6-8.5); Neutrophils Absolute Auto 9.3 K/mm3 (1.3-6.7); Neutrophils Percent Auto 73.3 % (45.5-73.1); Platelet Count Result 177 k/mm3 (150-375); Red Blood Count 2.62 M/mm3 (4.6-6.20); Red Cell Distribution Width 13.3 % (11.5-14.5); White Blood Count 12.7 K/mm3 (4.5-10.0)
[2024-08-13 06:05] LABS: Anion Gap 4 mmol/L (4-12); Blood Urea Nitrogen 18 mg/dL (9-20); Calcium 7.6 mg/dL (8.4-10.2); Carbon Dioxide 22 mmol/L (22-30); Chloride 109 mmol/L (98-107); Estimated CRCL calculation 77 ml/min; Estimated Glomerular Filt Rate > 60; Glucose 126 mg/dL (65-110); Potassium 4.5 mmol/L (3.4-5.0); Sodium 135 mmol/L (137-145)
[2024-08-13] MEDS: CELECOXIB 200 MG CAPSULE PO (08:44)
[2024-08-13] MEDS: polyethylene glycoL 3350 17 GM POWD.PACK PO (08:44)
[2024-08-13] MEDS: FAMOTIDINE 20 MG TABLET PO ×2 (08:44→21:12)
[2024-08-13] MEDS: SENNA/DOCUSATE SODIUM TABLET 2 TAB PO ×2 (08:44→17:35)
[2024-08-13] MEDS: CALCIUM/VITAMIN D 500 MG/5 MCG (200 I.U.) TABLET PO (08:44)
[2024-08-13] MEDS: oxyCODONE/ACETAMINOPHEN (*CRX) 5-325 MG TABLET 1 TABLET PO ×2 (08:47→17:38)
--- NOTE | 2024-08-13 10:26 | P.PNAN_ITS ---
Anes - Prog Note Post-Op Date/Time: 08/13/24 10:26 Cardiovascular status: normal Respiratory status: normal Airway patency: baseline Mental status: baseline Post-Op hydration status: normal Vital Signs: Last Vital Signs Temp 36.9 C 08/13/24 08:16 Pulse 93 08/13/24 08:16 Resp 18 08/13/24 08:16 BP 111/59 L 08/13/24 08:16 Pulse Ox 93 08/13/24 09:18 O2 Del Method Room Air 08/13/24 09:18 O2 Flow Rate 2 08/12/24 17:20 Pain Score (VAS): 2 I/O: Intake & Output 08/12/24 08/13/24 08/13/24 23:59 07:59 15:59 Intake Total 950 50 Balance 950 50 Laboratory Tests 08/13/24 05:48 08/13/24 05:48 08/12/24 08/12/24 08/12/24 11:13 14:04 20:03 WBC RBC Hgb 11.7 L D 11.4 L Hct 36.8 L 36.1 L MCV MCH MCHC RDW Plt Count MPV Immature Gran % (Auto) Neut % (Auto) Lymph % (Auto) Carlton % (Auto) Eos % (Auto) Baso % (Auto) Lymph # (Auto) Carlton # (Auto) Eos # (Auto) Baso # (Auto) Abs Immat Gran (auto) Absolute Neuts (auto) Absolute Nucleated RBC Nucleated RBC % Sodium Potassium Chloride Carbon Dioxide Anion Gap BUN Creatinine Estim Creat Clear Calc Estimated GFR Glucose POC Capillary Glucose 163 H Calcium 08/13/24 05:48 WBC 12.7 H RBC 2.62 L Hgb 8.3 L D Hct 26.4 L MCV 100.8 H MCH 31.7 MCHC 31.4 L RDW 13.3 Plt Count 177 MPV 10.1 Immature Gran % (Auto) 0.5 Neut % (Auto) 73.3 H Lymph % (Auto) 13.8 L Carlton % (Auto) 12.2 H Eos % (Auto) 0.0 Baso % (Auto) 0.2 Lymph # (Auto) 1.74 Carlton # (Auto) 1.5 H Eos # (Auto) 0.0 Baso # (Auto) 0.0 Abs Immat Gran (auto) 0.06 H Absolute Neuts (auto) 9.3 H Absolute Nucleated RBC 0.000 Nucleated RBC % 0.0 Sodium 135 L Potassium 4.5 Chloride 109 H Carbon Dioxide 22 Anion Gap 4 BUN 18 Creatinine 0.87 Estim Creat Clear Calc 77 Estimated GFR > 60 Glucose 126 H POC Capillary Glucose Calcium 7.6 L Post-procedural complaints: none Patient Feedback: Patient satisfied with anesthetic care.
[2024-08-13] MEDS: RIVAROXABAN 10 MG TABLET PO (17:35)
--- NOTE | 2024-08-13 17:35 | P.PNOP_ITS ---
Progress Note: A&P Assessment and Plan (1) History of hip replacement, total: Code(s): Z96.649 - Presence of unspecified artificial hip joint Status: Acute Assessment and Plan: POD 1 IMPROVING. HE WILL BENEFIT FROM [facility] DUE TO HIS DIFFICULTY WITH MAINTAINING A TOE TOUCH WEIGHT BEARING STATUS DUE TO UPPER AND LOWER BODY WEAKNESS. WE WILL REEVALUATE HIM TOMORROW AND PLAN TRANSFER AT THAT TIME. Subjective Subjective Date/Time Seen: 08/13/24 17:35 Interval history: POD 1 DOING WELL. HE HAS GOOD PAIN CONTROL. HE PREFORMS WITH PT AND IS STABLE. HE NEED TO IMPROVED HIS AMBULATION AND MAINTAIN A TOE TOUCH WEIGHT BEARING ON THE LEFT SIDE. 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 CALF SOFT NON TENDER Objective Data Vital Signs Vital Signs: Vital Signs - 24 hr 08/12/24 17:40 08/12/24 17:55 08/12/24 18:30 Temperature 36.3 C L 36.3 C L 36.3 C L Pulse Rate 88 88 90 Respiratory Rate 16 16 16 Blood Pressure 117/67 108/66 122/64 Pulse Oximetry 100 100 100 Oxygen Delivery 08/12/24 18:49 08/12/24 21:00 08/13/24 00:43 Temperature 35.9 C L 35.9 C L 35.5 C L Pulse Rate 101 H 101 H 89 Respiratory Rate 20 20 16 Blood Pressure 120/59 L 120/59 L 101/60 Pulse Oximetry 98 98 96 Oxygen Delivery 08/13/24 05:05 08/13/24 08:16 08/13/24 08:43 Temperature 35.9 C L 36.9 C Pulse Rate 87 93 Respiratory Rate 20 18 Blood Pressure 101/44 L 111/59 L Pulse Oximetry 95 93 Oxygen Delivery Room Air 08/13/24 08:55 08/13/24 09:18 08/13/24 10:40 Temperature Pulse Rate Respiratory Rate Blood Pressure Pulse Oximetry 93 Oxygen Delivery Room Air Room Air Room Air 08/13/24 10:49 08/13/24 14:49 Temperature 36.6 C 36.8 C Pulse Rate 88 77 Respiratory Rate 16 16 Blood Pressure 115/62 115/72 Pulse Oximetry 96 96 Oxygen Delivery Intake/Output Intake/Output: Intake & Output 05/19/25 08/11/24 08/12/24 08/13/24 23:59 23:59 23:59 23:59 Intake Total 1950 770 Output Total 300 Balance 1650 770 Meds/Results Medications: Active Medications Generic Name Dose Route Start Last Admin Trade Name Freq PRN Reason Stop Dose Admin Acetaminophen 650 mg 08/12/24 17:04 Acetaminophen 325 Mg Tablet PO Q6H PRN Mild Pain (1-3) Or Fever Calcium Carbonate 500 mg 08/13/24 09:00 08/13/24 08:44 Calcium/Vitamin D 500 Mg/5 Mcg (200 I.U.) Tablet PO 500 mg QAM KATE Administration Celecoxib 200 mg 08/12/24 17:04 08/13/24 08:44 Celecoxib 200 Mg Capsule PO 200 mg DAILY KATE Administration Diazepam 5 mg 08/12/24 17:04 08/13/24 00:15 Diazepam (*Crx) 5 Mg Tablet PO 5 mg Q6H PRN Administration Anxiety/Muscle Spasm Diphenhydramine HCl 25 mg 08/12/24 17:04 Diphenhydramine Hcl Inj 50 Mg/Ml Vial IV PUSH Q6H PRN Itching Famotidine 20 mg 08/12/24 17:04 08/13/24 08:44 Famotidine 20 Mg Tablet PO 20 mg Q12HR KATE Administration Sodium Chloride 1,000 mls @ 125 mls/hr 08/12/24 17:04 08/13/24 01:54 Normal Saline Iv IV CONT Not Given .Q8H KATE Ibuprofen 800 mg in 200 mls @ 400 mls/hr 08/12/24 17:04 08/12/24 20:01 Caldolor 800 Mg/200 Ml IVPB 400 mls/hr Q6H PRN Administration Breakthrough Pain Rated 1-3 or NPO Naloxone HCl 0.1 mg 08/12/24 17:04 Naloxone Hcl 0.4 Mg/Ml Vial IV PUSH Q2M PRN Opiate Reversal Ondansetron HCl 4 mg 08/12/24 17:04 Ondansetron Inj 4 Mg/2 Ml Vial IV PUSH Q4H PRN Nausea And Vomiting Oxycodone/Acetaminophen 1 tablet 08/12/24 17:04 08/13/24 08:47 Oxycodone/Acetaminophen (*Crx) 5-325 Mg Tablet PO 1 tablet Q4H PRN Administration Pain Rated 4-6 Oxycodone/Acetaminophen 1 tab 08/12/24 17:04 Oxycodone/Acetaminophen (*Crx) 10-325 Mg Tablet PO Q6H PRN Pain Rated 7-10 Polyethylene Glycol 17 gm 08/12/24 17:04 08/13/24 08:44 Polyethylene Glycol 3350 17 Gm Powd.Pack PO 17 gm QAM KATE Administration Rivaroxaban 10 mg 08/12/24 17:04 08/12/24 18:33 Rivaroxaban 10 Mg Tablet PO 10 mg DAILY@1700 KATE Administration Senna/Docusate Sodium 2 tab 08/12/24 17:04 08/13/24 08:44 Senna/Docusate Sodium Tablet PO 2 tab BID KATE Administration Radiology Results: ITS Impressions Intraoperative X-Ray 08/12/24 14:07 IMPRESSION: 1. Expected appearance during left total hip arthroplasty. Hip X-Ray 08/12/24 14:15 IMPRESSION: 1. Left total hip arthroplasty, negative for postoperative purposes. Labs Labs: Laboratory Results - last 24 hr 08/12/24 08/13/24 20:03 05:48 WBC 12.7 H RBC 2.62 L Hgb 8.3 L D Hct 26.4 L MCV 100.8 H MCH 31.7 MCHC 31.4 L RDW 13.3 Plt Count 177 MPV 10.1 Immature Gran % (Auto) 0.5 Neut % (Auto) 73.3 H Lymph % (Auto) 13.8 L Campbell % (Auto) 12.2 H Eos % (Auto) 0.0 Baso % (Auto) 0.2 Lymph # (Auto) 1.74 Campbell # (Auto) 1.5 H Eos # (Auto) 0.0 Baso # (Auto) 0.0 Abs Immat Gran (auto) 0.06 H Absolute Neuts (auto) 9.3 H Absolute Nucleated RBC 0.000 Nucleated RBC % 0.0 Sodium 135 L Potassium 4.5 Chloride 109 H Carbon Dioxide 22 Anion Gap 4 BUN 18 Creatinine 0.87 Estim Creat Clear Calc 77 Estimated GFR > 60 Glucose 126 H POC Capillary Glucose 163 H Calcium 7.6 L
[2024-08-14 06:21] VITALS: BP 121/53; PULSE 90; RESP 18; TEMP 36.9; O2SAT 93
[2024-08-14] MEDS: ACETAMINOPHEN 325 MG TABLET 650 MG PO (08:39)
[2024-08-14] MEDS: CELECOXIB 200 MG CAPSULE PO (08:40)
[2024-08-14] MEDS: FAMOTIDINE 20 MG TABLET PO (08:40)
[2024-08-14] MEDS: SENNA/DOCUSATE SODIUM TABLET 2 TAB PO (08:40)
[2024-08-14] MEDS: polyethylene glycoL 3350 17 GM POWD.PACK PO (08:40)
[2024-08-14] MEDS: CALCIUM/VITAMIN D 500 MG/5 MCG (200 I.U.) TABLET PO (08:40)
--- NOTE | 2024-08-14 09:17 | PM.PNORT ---
Progress Note: A&P Assessment and Plan (1) S/P total hip arthroplasty: Qualifiers: Laterality: left Qualified Code(s): Z96.642 - Presence of left artificial hip joint Code(s): Z96.649 - Presence of unspecified artificial hip joint Status: Acute Assessment and Plan: POD #1: Left DARREL Continue PT/OT. TTWB LLE. Walker. HIGH FALL RISK. Patient to be fit with brace by [facility] prior to d/c. Continue pain control. Ice Hip. Protect skin. DVT prophylaxis with Eliquis due to concerns for financial stability to afford Xarelto. Approved by Dr. Hidalgo. SCDs. Incentive Spirometry Use reviewed. Monitor Dressing. Change prior to discharge. Bowel Regimen. Dispo: [facility] pending progress with PT/OT Awaiting Care Coordination Confirmation for d/c. Plan Reviewed history, exam, radiographs and current labs with attending MD and covering surgeon, Dr. Hidalgo, who agrees with current plan as indicated above. No further recommendations from Dr. Hidalgo at this time. Time Spent With Patient Time with patient: 15 - 25 minutes Subjective Subjective Date/Time Seen: 08/14/24 09:17 Post Op day: 2 Interval history: POD#2: Left DARREL Patient doing well. Slow progress with PT/OT. TTWB of the LLE. Pain controlled. Concerned about d/c home. Would prefer [facility]. Review of Systems Review of Systems: All systems reviewed & are unremarkable except as noted in HPI and below Constitutional: Constitutional: Denies chills, Denies fatigue, Denies fever(s), Denies night sweats and Denies weakness Cardiovascular: Cardiovascular: Denies chest pain, Denies lightheadedness, Denies palpitations and Denies dyspnea Respiratory: Respiratory: Denies cough, Denies dyspnea and Denies wheezing Gastrointestinal: Gastrointestinal: Denies abdominal pain, Denies diarrhea, Denies nausea and Denies vomiting Musculoskeletal: Musculoskeletal: Reports arthralgias (left hip ), Reports joint swelling (left hip ) and Denies numbness Neurologic: Denies numbness and Denies weakness Endocrine: Endocrine: Denies fatigue and Denies palpitations Allergic/Immunologic: Allergic/Immunologic: Denies wheezing Exam Const: General: comfortable and no acute distress Orientation/consciousness: patient oriented x3 Limitations: no limitations Resp: Effort & Inspection: normal respiratory effort Cardio: Rate: regular rate Rhythm: regular rhythm GI: Inspection: non-distended Skin: General skin exam: normal color and wounds noted (incision left hip C/D/I ) Wounds: wounds noted (incision left hip C/D/I ) Neuro: General: patient oriented x3 Extrem: Left lower extremity: hip/thigh Details: tenderness Location: of the hip Location: laterally and anteriorly, swelling (thigh soft ) Location: of the hip (lateral. ), abnormal ROM (limitations with internal/external rotation and flexion/extension due to recent surgical intervention ) and other (incision lateral hip c/d/i. ), knee Details: normal to inspection and normal ROM; no tenderness and no swelling, lower leg (Negative Adrienne's Sign ) Details: no edema, ankle (+ankle dorsiflexion/plantarflexion ) Details: normal to inspection, no edema and normal ROM; no tenderness, no swelling and no warmth and foot Details: normal capillary refill, toes with normal ROM, vascular exam Details: dorsalis pedis pulse present and motor-sensory exam light-touch normal in all toes; no tenderness, no ecchymosis and no crepitus Psych: Mental Status: mental status grossly normal Affect: normal affect Objective Data Vital Signs Vital Signs: Vital Signs - 24 hr 08/13/24 09:18 08/13/24 10:40 08/13/24 10:49 Temperature 36.6 C Pulse Rate 88 Respiratory Rate 16 Blood Pressure 115/62 Pulse Oximetry 93 96 Oxygen Delivery Room Air Room Air Fraction of Inspired Oxygen 08/13/24 14:49 08/13/24 19:51 08/13/24 20:08 Temperature 36.8 C 36.9 C Pulse Rate 77 95 91 Respiratory Rate 16 18 20 Blood Pressure 115/72 121/68 Pulse Oximetry 96 97 95 Oxygen Delivery Room Air Fraction of Inspired Oxygen 21 08/13/24 21:00 08/14/24 06:21 08/14/24 08:46 Temperature 36.9 C Pulse Rate 90 Respiratory Rate 18 Blood Pressure 121/53 L Pulse Oximetry 93 Oxygen Delivery Room Air Room Air Fraction of Inspired Oxygen Intake/Output Intake/Output: Intake & Output 08/11/24 08/12/24 08/13/24 08/14/24 23:59 23:59 23:59 23:59 Intake Total 1950 1250 500 Output Total 300 300 Balance 1650 1250 200 Meds/Results Medications: Active Medications Generic Name Dose Route Start Last Admin Trade Name Freq PRN Reason Stop Dose Admin Acetaminophen 650 mg 08/12/24 17:04 08/14/24 08:39 Acetaminophen 325 Mg Tablet PO 650 mg Q6H PRN Administration Mild Pain (1-3) Or Fever Calcium Carbonate 500 mg 08/13/24 09:00 08/14/24 08:40 Calcium/Vitamin D 500 Mg/5 Mcg (200 I.U.) Tablet PO 500 mg QAM KATE Administration Celecoxib 200 mg 08/12/24 17:04 08/14/24 08:40 Celecoxib 200 Mg Capsule PO 200 mg DAILY KATE Administration Diazepam 5 mg 08/12/24 17:04 08/13/24 00:15 Diazepam (*Crx) 5 Mg Tablet PO 5 mg Q6H PRN Administration Anxiety/Muscle Spasm Diphenhydramine HCl 25 mg 08/12/24 17:04 Diphenhydramine Hcl Inj 50 Mg/Ml Vial IV PUSH Q6H PRN Itching Famotidine 20 mg 08/12/24 17:04 08/14/24 08:40 Famotidine 20 Mg Tablet PO 20 mg Q12HR KATE Administration Ibuprofen 800 mg in 200 mls @ 400 mls/hr 08/12/24 17:04 08/12/24 20:01 Caldolor 800 Mg/200 Ml IVPB 400 mls/hr Q6H PRN Administration Breakthrough Pain Rated 1-3 or NPO Naloxone HCl 0.1 mg 08/12/24 17:04 Naloxone Hcl 0.4 Mg/Ml Vial IV PUSH Q2M PRN Opiate Reversal Ondansetron HCl 4 mg 08/12/24 17:04 Ondansetron Inj 4 Mg/2 Ml Vial IV PUSH Q4H PRN Nausea And Vomiting Oxycodone/Acetaminophen 1 tablet 08/12/24 17:04 08/13/24 17:38 Oxycodone/Acetaminophen (*Crx) 5-325 Mg Tablet PO 1 tablet Q4H PRN Administration Pain Rated 4-6 Oxycodone/Acetaminophen 1 tab 08/12/24 17:04 Oxycodone/Acetaminophen (*Crx) 10-325 Mg Tablet PO Q6H PRN Pain Rated 7-10 Polyethylene Glycol 17 gm 08/12/24 17:04 08/14/24 08:40 Polyethylene Glycol 3350 17 Gm Powd.Pack PO 17 gm QAM KATE Administration Rivaroxaban 10 mg 08/12/24 17:04 08/13/24 17:35 Rivaroxaban 10 Mg Tablet PO 10 mg DAILY@1700 [facility] Administration Senna/Docusate Sodium 2 tab 08/12/24 17:04 08/14/24 08:40 Senna/Docusate Sodium Tablet PO 2 tab BID KATE Administration Radiology Results: ITS Impressions Intraoperative X-Ray 08/12/24 14:07 IMPRESSION: 1. Expected appearance during left total hip arthroplasty. Hip X-Ray 08/12/24 14:15 IMPRESSION: 1. Left total hip arthroplasty, negative for postoperative purposes.
--- NOTE | 2024-08-14 09:22 | PCOTNOTE ---
The patient treatment was not able to be completed. Patient eating breakfast. Will plan to continue treatment per plan of care.
[2024-08-14 10:42] VITALS: BP 99/55; PULSE 99; RESP 18; TEMP 36.9; O2SAT 94
[2024-08-14] MEDS: oxyCODONE/ACETAMINOPHEN (*CRX) 5-325 MG TABLET 1 TABLET PO (11:07)
--- NOTE | 2024-08-14 13:07 | PC.NURSE ---
RN called [facility] for instructions on hip abductor. Did not answer, but voicemail was left.
--- NOTE | 2024-08-21 09:05 | P.DS_ITS ---
DS: Admitting Diagnosis Discharge Date 08/14/24 Admitting Diagnosis Left DARREL DS: Discharge Diagnosis Discharge Diagnosis (1) S/P total hip arthroplasty: Qualifiers: Laterality: left Qualified Code(s): Z96.642 - Presence of left artificial hip joint Code(s): Z96.649 - Presence of unspecified artificial hip joint Status: Acute Assessment and Plan: POD #2: Left DARREL Continue PT/OT. TTWB LLE. Walker. HIGH FALL RISK. Patient to be fit with brace by [facility] clinic prior to d/c. Continue pain control. Ice Hip. Protect skin. DVT prophylaxis with Eliquis due to concerns for financial stability to afford Xarelto. Approved by Dr. Hidalgo. SCDs. Incentive Spirometry Use reviewed. Monitor Dressing. Change prior to discharge. Bowel Regimen. Dispo: [facility] pending progress with PT/OT Awaiting Care Coordination Confirmation for d/c. Plan Reviewed history, exam, radiographs and current labs with attending MD and covering surgeon, Dr. Hidalgo, who agrees with current plan as indicated above. No further recommendations from Dr. Hidalgo at this time. DS: Summary Hospital Course Reason for hospitalization: Left DARREL Hospital Course: 78 year old male admitted s/p Left DARREL for postoperative medical management, pain control and mobilization with PT/OT. Patient progressed slowly with PT/OT due to requirement for TTWB. Pain and vitals remained stable throughout. The patient has been cleared to be discharged to acute rehab at this time. All discharge care instructions reviewed at depth. New medications reviewed. Follow up planned for 3 weeks in the outpatient orthopedic clinic with Dr. Hidalgo. Dr. Hidalgo in agreement with safe discharge at this time. Status at Discharge Functional status at discharge: uses cane/walker (TTWB) Overall status at discharge: patient is progressing back to baseline (with limitations ) Time Spent with Patient Time attestation: Total time spent providing and/or coordinating discharge services: Exam Const: General: comfortable and no acute distress Orientation/consciousness: patient oriented x3 Limitations: no limitations Resp: Effort & Inspection: normal respiratory effort Cardio: Rate: regular rate Rhythm: regular rhythm GI: Inspection: non-distended Skin: General skin exam: normal color and wounds noted (incision left hip C/D/I ) Wounds: wounds noted (incision left hip C/D/I ) Neuro: General: patient oriented x3 Extrem: Left lower extremity: hip/thigh Details: tenderness Location: of the hip Location: laterally and anteriorly, swelling (thigh soft ) Location: of the hip (lateral. ), abnormal ROM (limitations with internal/external rotation and flexion/extension due to recent surgical intervention ) and other (incision lateral hip c/d/i. 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 Robb Hidalgo [phone] * Your dressing will be changed prior to your discharge. You will be sent home with one additional dressing to be changed on post op day 7 by the home health RN. You may remove the dressing on post op day 14. Your incision was closed with dermabond, allow the dermabond to fall off naturally once your dressing is removed. Do not pull at the dermabond or disrupt incision healing. * You may shower with your dressing but do not submerge in a bath tub. * Do not drive or operate machinery until you are released by Dr. Hidalgo. * Do not walk without a walker for any reason until you are released by Dr. Hidalgo. * Maintain Toe-Touch Weight Bearing. Hip abductor brace on when ambulating for stability. Okay to remove for hygiene/sleep. Please see application instructions from [facility]. * Continue to apply ice to the hip intermittently for additional pain relief. Protect your skin with a towel or pillow case. * Continue to follow strict total hip replacement precautions. * Your first post op appointment was sent to you via mail preoperatively. If you have any questions or are unable to make your appointment, please contact our office for scheduling questions. * Your medications have been sent to your pharmacy. You have been sent home with pain medication. Please sweet pickled fruit maker an over the counter stool softener to prevent constipation due to narcotic use. Please keep this in mind during your postoperative recovery. If you are not experiencing regular bowel movements, please contact our office for further instructions. * Please contact our office with any questions/concerns regarding your hip at [phone]. Patient Language: Danish Stand Alone Forms: General Discharge Information, General Discharge Instructions Follow-up/Referrals: Robb Hidalgo MD [Physician] - Discharge Medications: New oxycodone-acetaminophen 5-325 mg tablet 1 tablet PO Q6H PRN (Reason: pain) Qty: 40 0RF Continued aspirin 81 mg tablet,delayed release (DR/EC) 81 mg PO DAILY calcium carbonate-vitamin D3 [Calcium 600 + D(3)] 600 mg-5 mcg (200 unit) tablet 1 tablet PO DAILY acetaminophen 325 mg Tablet 650 mg PO Q6H PRN (Reason: Mild Pain (1-3) Or Fever) Qty: 0 0RF Discontinued chlorhexidine gluconate [Hibiclens] 4 % liquid 1 applic topical DAILY Qty: 237 0RF Rx Instructions: cleanse operative extremity every day for 7 days prior to procedure No Action Eliquis 2.5 mg tablet 2.5 mg PO BID Rx Instructions: x45 doses Date of admission: 08/13/24 17:56 Primary Care Provider: Gisela Song Admitting Provider: Robb Hidalgo Attending physician on admission: Sheree Saab Condition: Stable
== END 2024-08-14 13:53 | DRG 522 ==
LOC: ANHSURGERY 17:58 → ANH3MED 17:58
PROVIDERS: Admitting Provider Orthopaedic Surgery; PCP Nurse Practitioner Family; Visit Provider Nurse Practitioner Family
PROC: 0SRB04A Replacement of Left Hip Joint with Ceramic on Polyethylene Synthetic Substitute, Uncemented, Open Approach (ICD-10-PCS; CPT 27130; principal; 2024-08-12 07:30)
DX: S72.002A Fracture of unspecified part of neck of left femur, initial encounter for closed fracture (principal); M19.90 Unspecified osteoarthritis, unspecified site; M81.0 Age-related osteoporosis without current pathological fracture; Z86.718 Personal history of other venous thrombosis and embolism
CPT/HCPCS: 36415; 73501; 80048; 82948; 85014; 85018; 85025; 97110; 97116; 97161; 97166; 97530; 97535; 99199; A9270; C1713; C1776; J0171; J0690; J1100; J1171; J1741; J1885; J2003; J2270; J2371; J2704; J2795; J3010; J3370; J7120